=== PATIENT | female | born 1985 | race Caucasian/White ===

== ENCOUNTER 2023-02-17 14:42 | Outpatient (AMB) | payer OTHER, SELFPAY ==
[2023-02-17 15:02] VITALS: BP 130/70; PULSE 70; O2SAT 98; BMI 21.8
--- NOTE | 2023-02-17 15:02 | MHC.PC.OV ---
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 Allergies No Known Allergies Allergy (Verified 02/17/23 15:05) Medication List - Last Reconciled 02/17/23 by Akin Hernandez MD No Known Home Meds Tobacco use date assessed: 02/17/23 Dental Screening Dental Screen Date: 02/17/23 Did you have a dental visit in the last 12 months?: No Did you have a dental problem in the last 6 months where you did not have access to dental care?: No Was dental information given to patient?: Yes HPI Executive Business Coach Request PE HPI Details New?patient Prior?PCP: Edwige BAJWA Last?office?visit/CPE: > 2 yrs Acute?issue(s): Enlarged Thyroid Feels Lump R Shoulder pain Hand Joint Pain. Ibuprofen, Ice/Heat. Concern for suspected Crohn's PMHx: Enlarged Thyroid, Knee Pain and meniscal injuries. Anxiety/Depression. SurgHx: Hysterectomy, MOEs for Moles, Tonsils FHx: Mom: Arthritis, MS, CAD, PA & Stent, HTN, DM Renal disease, Mental health. Dad: EtOH, Lumng [place]. Aunt: RA SocHx: Nonsmoker, EtOH Minimal 1-2 per year. MJ Edibles. No other drugs PFSH Medical History (Updated 02/17/23 @ 16:37 by Akin Hernandez MD) Mohs defect Anxiety Depression Surgical History (Updated 02/17/23 @ 15:15 by Gela Camarena CMA) H/O: hysterectomy S/P tonsillectomy Family History (Updated 02/17/23 @ 15:22 by Gela Camarena CMA) Mother Asthma High blood pressure High cholesterol Diabetes Cardiovascular disease Clotting disorder Thyroid disorder Alcoholism Psychiatric disorder Father Asthma Alcoholism Maternal Grandmother Asthma Breast cancer Paternal Grandmother Asthma Brother Asthma Social History (Updated 02/17/23 @ 15:33 by Gela Camarena CMA) Household Members: Family Housing: House Are you a primary manager medicare marketing to a significant other at home: No Do you presently have visiting nurse or other home services: No Alcohol intake: current Patient Tobacco Use Status: Never used Tobacco e-Cigarette/Vaping Use: Never Used Special abdelrahman needs: No service: No Current occupational status: disabled Vision needs: Yes (wears prescription glasses.) Questionnaire PHQ-9 Over the last 2 weeks, how often have you been bothered by any of the following problems? 1. Little interest or pleasure in doing things: nearly every day 2. Feeling down, depressed, or hopeless: nearly every day 3. Trouble falling or staying asleep, or sleeping too much: nearly every day 4. Feeling tired or having little energy: nearly every day 5. Poor appetite or overeating: several days 6. Feeling bad about yourself - or that you are a failure or have let yourself or your family down: nearly every day 7. Trouble concentrating on things, such as reading the newspaper or watching television: nearly every day 8. Moving or speaking so slowly that other people could have noticed. Or the opposite - being so fidgety or restless that you have been moving around a lot more than usual: nearly every day 9. Thoughts that you would be better off or of hurting yourself in some way: several days Total score: 23 Source: Developed by Drs. Frederick Main, Tatiana Navas, Charan Shanks and colleagues, with an educational hafsa from [employer]. Thrive Questionnaire I am a: Patient What is your living situation today?: I have a steady place to live Within the past 12 months, did the food you bought not last and you didn't have the money to get more?: Sometimes True Within the past 12 months, did you worry whether your food would run out before you got money to buy more?: Sometimes True Do you have trouble paying for medicines?: No Do you have trouble getting transportation to medical appointments?: No Do you have trouble paying your heating and electricity bill?: No Do you have trouble with day-to-day activities such as bathing, preparing meals, shopping, managing finances, etc.?: Yes Are you currently unemployed and looking for a job?: No Are you interested in more education?: No AUDIT C Alcohol Use Questionnaire (AUDIT-C) 1. How often do you have a drink containing alcohol?: Monthly or less 2. How many drinks containing alcohol do you have on a typical day when you are drinking?: 1 or 2 3. How often do you have six or more drinks on one occasion?: Never Total Score: 1 FRED-7 AMB Questionnaire FRED-7 Feeling nervous, anxious, or on edge: 2 = More than half the days Not being able to stop or control worryin = Nearly every day Worrying too much about different things: 3 = Nearly every day Trouble relaxin = Nearly every day Being so restless that it is hard to sit still: 2 = More than half the days Becoming easily annoyed or irritable: 2 = More than half the days Feeling afraid as if something awful might happen: 2 = More than half the days Total FRED-7 score (0-4 normal; 5-9 mild; 10-14 moderate; 15-21 severe): 17 Source: Developed by Drs. Frederick Main, Tatiana Navas, Charan Shanks and colleagues, with an educational hafsa from [employer]. Physical exam (Primary Care) Vital Signs: Last Vital Signs Pulse 70 02/17/23 15:02 BP 130/70 02/17/23 15:02 Pulse Ox 98 02/17/23 15:02 Oxygen Delivery Method Room Air 02/17/23 15:02 BMI result Body Mass Index 21.8 Tobacco/Smoking Status: Tobacco use Status Tobacco use date assessed 02/17/23 02/17/23 15:29 Patient Tobacco Use Status Never used Tobacco 02/17/23 15:33 e-Cigarette/Vaping Use Never Used 02/17/23 15:33 PHQ-9: PHQ-9 Score PHQ-9: Total score 23 02/19/23 14:17 Office Procedures Flu Questionnaire Does the patient have a severe egg allergy?: No Does the patient have severe life threatening allergies?: No Does the patient have a fever or illness today?: No Has the patient ever had Guillain-[place] Syndrome?: No Has the patient ever had any past reaction to a flu shot?: No Immunizations flu vacc [id number] 6mos up(PF) 60 mcg(15 mcgx4)/0.5 mL IM syringe Performing Provider: Akin Hernandez MD Performing Location: [facility] Administered by: Jeanie Rubalcava RN on 02/17/23 14:17 Dose Route Admin Location Dispensed Lot Number Expiration Date NDC E Merchant 0.5 mL IM Left Deltoid 0.5 mL [id number] 11/09/23 78407-018-05 Vidient VIS Given Date VIS Provided VIS Publication Date 02/17/23 Single Vaccine 20 Eligibility Eligibility Date Funding Source Not [facility] Eligible 02/17/23 Private Assessment and Plan Assessment & Plan (1) Neck mass: Code(s): R22.1 - Localized swelling, mass and lump, neck Plan: History?of?anterior?neck?mass. Patient?does?not?think?she?is?ever?been?told?she?had?hyperthyroidism?or?hypothyroidism. Also?checking?thyroid?labs Check?CBC Will?continue?to?follow/evaluate (2) Anxiety and depression: Code(s): F41.9 - Anxiety disorder, unspecified; F32.A - Depression, unspecified Plan: Patient?had?had?a?therapist?and?psychiatrist?in?the?past?and?had?been?on?Lexapro,?Latuda?and?a?2nd?line?medication?as?well. Starting?Lexapro?and?referred?her?to?the?nurse?navigator?to?help?her?get?connected?with?a?therapist?and?psychiatrist (3) Shoulder pain, right: Code(s): M25.511 - Pain in right shoulder Plan: Right?shoulder?pain Normal?range?of?motion?and?no?weakness Neer's?test?negative?for?impingements Checking?lab Can?try?diclofenac May?need?x-rays?and?or?physical?therapy?or?referral?to?Rheumatology. (4) Abdominal pain: Code(s): R10.9 - Unspecified abdominal pain Plan: Patient?says?past?doctors?had?had?clinical?suspicion?of?Crohn's Has?chronic?abdominal?pain Checking?labs?and?referring?her?to?GI (5) Polyarthralgia: Code(s): M25.50 - Pain in unspecified joint Plan: As?above,?checking?labs?including?inflammatory?and?autoimmune?markers Does?not?tolerate?NSAIDs?well?due?to?abdominal?discomfort. Will?give?her?a?script?for?diclofenac?that?she?can?try. Orders: Orders Comprehensive [place]. Panel Fast 02/17/23 Z00.00 - Encounter for general adult medical examination without abnormal findings Lipid Panel 02/17/23 Z00.00 - Encounter for general adult medical examination without abnormal findings UA and rflx microscopic 02/17/23 Z00.00 - Encounter for general adult medical examination without abnormal findings Vitamin B12 and Folate 02/17/23 E53.8 - Deficiency of other specified B group vitamins Free T4 (Free Thyroxine) 02/17/23 E03.9 - Hypothyroidism, unspecified Thyroid Stimulating Hormone 02/17/23 E03.9 - Hypothyroidism, unspecified Triiodothyronine T3 Total 02/17/23 E03.9 - Hypothyroidism, unspecified Erythrocyte Sedimentation Rate 02/17/23 M25.50 - Pain in unspecified joint Rheumatoid Factor 02/17/23 M25.50 - Pain in unspecified joint Microalbumin, Random (w Creat) 02/17/23 I10 - Essential (primary) hypertension Vitamin D 25-OH Total 02/17/23 E55.9 - Vitamin D deficiency, unspecified US soft tiss head and/or neck 02/17/23 R22.1 - Localized swelling, mass and lump, neck CRP High Sensitivity 02/17/23 M25.50 - Pain in unspecified joint Cyclic Citrullinated Peptide 02/17/23 M25.50 - Pain in unspecified joint RANDEE Reflex Titer and Pattern 02/17/23 M25.50 - Pain in unspecified joint Complete Blood Count Auto Diff 02/17/23 R22.1 - Localized swelling, mass and lump, neck, Z00.00 - Encounter for general adult medical examination without abnormal findings Influenza [id number] Immunization 02/17/23 Z23 - Encounter for immunization Referrals Gastroenterology Referral R10.9 - Unspecified abdominal pain Nurse Navigator Referral F32.A - Depression, unspecified, F41.9 - Anxiety disorder, unspecified Medications: New escitalopram oxalate (Lexapro) 5 mg PO DAILY 30 days 30 tabs 3RF diclofenac sodium 1% apply to single knee, ankle, foot; for foot includes sole/toes/top of foot 4 grams topical QID 30 days 200 grams 2RF Coding Level of Care Code Est Pt Level 5 (57599) Diagnoses Neck mass R22.1 Anxiety and depression F41.9; F32.A Shoulder pain, right M25.511 Abdominal pain R10.9 Polyarthralgia M25.50
== END 2023-02-17 17:15 | disposition home or self-care (01) ==
PROVIDERS: PCP Family Medicine; Visit Provider Family Medicine
DX: Z23 Encounter for immunization (principal)
CPT/HCPCS: 90471; 90686; 99214

== ENCOUNTER 2023-03-12 13:26 | Outpatient (REF) | payer OTHER, SELFPAY ==
--- NOTE | ~2023-03-12 | US_ITS ---
EXAMINATION: US THYROID CLINICAL INFORMATION: Localized swelling, mass and lump, neck. COMPARISON: None available. TECHNIQUE: Linear transducer de la trore-scale and color Doppler examination with attention to the region of the thyroid. FINDINGS: SIZE: Measurements of the thyroid lobes and nodules are given in sagittal, anteroposterior and transverse dimensions respectively. Right Thyroid Lobe: 5.8 x 1.6 x 1.8 cm, volume 8.6 mL. Parenchyma: The gland echotexture is heterogeneous. Thyroid vascularity is increased. Left Thyroid Lobe: 5.2 x 1.7 x 1.5 cm, volume 7.2 mL. Parenchyma: The gland echotexture is heterogeneous. Thyroid vascularity is increased. Isthmus: 0.4 cm in maximum AP dimension. No focal thyroid nodule is seen. NODES: No lymphadenopathy is seen in the tissue surrounding the thyroid gland. US/US thyroid IMPRESSION: 1. No discrete thyroid nodules identified. 2. Bilateral thyroid lobes demonstrate heterogeneous echotexture with normal vascularity. 3. No lymphadenopathy noted.
== END 2023-03-12 13:27 | disposition home or self-care (01) ==
LOC: HO.US 13:26
PROVIDERS: PCP Family Medicine; Visit Provider Family Medicine
DX: R22.1 Localized swelling, mass and lump, neck (principal)
CPT/HCPCS: 76536

== ENCOUNTER 2023-04-18 09:33 | Outpatient (REF) | payer OTHER, SELFPAY ==
[2023-04-18 12:15] LABS: Appearance Urine Turbid; Color Urine Yellow; Glucose Urine UA Negative (Negative); Leukocyte Esterase Urine Negative (Negative); Nitrite Urine Negative (Negative); PH 5.5 (5.0-9.0); Specific Gravity - Urine >= 1.030 (1.005-1.025); Urine Blood Negative (Negative); Urine Ketones Negative (Negative); Urine Protein Negative (Neg-Trace)
[2023-04-18 12:16] LABS: MANUAL DIFF FLAG NO
[2023-04-18 12:35] LABS: Basophils Percent Auto 0.6 % (0-2); Eosinophils Absolute Auto 0.3 X10*3/uL (0.0-0.4); Eosinophils Percent Auto 3.7 % (0-4); Hematocrit 42.2 % (37.0-47.0); Hemoglobin 13.9 g/dl (12.0-16.0); Imm Gran Abs Auto 0.02 X10*3/uL (0.00-0.03); Imm Gran Pct Auto 0.3 % (0.0-0.4); Lymphocytes Absolute Auto 1.9 X10*3/uL (1.2-4.9); Lymphocytes Percent Auto 28.9 % (20-40); Mean Corpuscular HGB Conc 32.9 g/dl (31.0-35.0); Mean Corpuscular Hemoglobin 30.1 pg (27.0-33.0); Mean Corpuscular Volume 91.3 fL (80.0-98.0); Mean Platelet Volume 11.4 fL (9.4-12.3); Monocytes Absolute Auto 0.5 X10*3/uL (0.1-1.2); Monocytes Percent Auto 7.9 % (2-11); Neutrophils Absolute Auto 3.9 x10*3/uL (2.0-8.3); Neutrophils Percent Auto 58.6 % (45-73); Platelet Count 215 X10*3/uL (160-400); Red Blood Count 4.62 X10*6/uL (4.20-5.50); Red Cell Distribution Width 11.7 % (11.0-16.0); White Blood Count 6.7 X10*3/uL (4.8-10.8)
[2023-04-18 12:53] LABS: Creatinine Urine 210.73 mg/dL; Microalbum/Creatinine Ratio Ur 4.7 ug/mg cr (<30)
[2023-04-18 13:14] LABS: Rheumatoid Factor < 13.0 IU/mL (<15.0)
[2023-04-18 13:28] LABS: Folate 11.9 ng/mL (> or = 4.0); Vitamin B12 462 pg/mL (200-900)
[2023-04-18 13:35] LABS: Erythrocyte Sedimentation Rate 6 MM/HR (0-20)
[2023-04-18 13:51] LABS: Alanine Aminotransferase 12 U/L (0-31); Albumin Level 4.3 g/dL (3.5-5.0); Alkaline Phosphatase 60 U/L (39-117); Anion Gap 13 (12-20); Aspartate Amino Transferase 16 U/L (5-31); Bilirubin Total 0.4 mg/dL (0.0-1.0); Blood Urea Nitrogen 21 mg/dL (9-16); Carbon Dioxide 25 mmol/L (22-29); Chloride 107 mmol/L (96-108); Cholesterol 229 mg/dL (<200); Estimated Glomerular Filt Rate > 60; Glucose Fasting 79 mg/dL (60-99); HDL Cholesterol 44 mg/dL (>40); LDL Cholesterol Calculated 168 mg/dL (<100); Sodium 141 mmol/L (135-145); Total Protein 7.7 g/dL (6.5-8.0); Triglycerides 85 mg/dL (<150)
[2023-04-18 14:12] LABS: Free T4 (Free Thyroxine) 0.76 ng/dL (0.71-1.85); Thyroid Stimulating Hormone 3.43 uIU/mL (0.32-4.0); Vitamin D 25-OH Total 17.7 ng/mL (>30)
[2023-04-19 04:59] LABS: Triiodothyronine T3 Total 145 ng/dL (76-181)
[2023-04-21 13:08] LABS: Cyclic Citrullinated Peptide <16 UNITS
[2023-04-22 08:04] LABS: Anti Nuclear Antibody Screen NEGATIVE (NEGATIVE)
== END 2023-04-18 09:34 | disposition home or self-care (01) ==
LOC: HO.WFDLDS 09:33
PROVIDERS: Visit Provider Family Medicine
DX: Z00.00 Encounter for general adult medical examination without abnormal findings (principal); E55.9 Vitamin D deficiency, unspecified; E03.9 Hypothyroidism, unspecified; M25.50 Pain in unspecified joint; E53.8 Deficiency of other specified B group vitamins; R22.1 Localized swelling, mass and lump, neck; I10 Essential (primary) hypertension
CPT/HCPCS: 36415; 80053; 80061; 81003; 82043; 82306; 82570; 82607; 82746; 84439; 84443; 84480; 85025; 85652; 86038; 86141; 86200; 86431

== ENCOUNTER 2023-04-30 11:53 | Outpatient (AMB) | payer OTHER, SELFPAY ==
[2023-04-30 12:36] VITALS: BP 120/72; PULSE 62; O2SAT 100; BMI 21.8
--- NOTE | 2023-04-30 12:36 | MHC.PC.OV ---
Vital Signs 04/30/23 12:36 Height 5 ft 5 in Weight 131 lb BMI 21.8 BP 120/72 Blood Pressure Location Lt brachial Position Sitting Pulse 62 Pulse Source Pulse Oximeter Pulse Oximetry (%) 100 Oxygen Delivery Method Room Air Intake Visit Reasons: CPE with f/u labs and health maint. Intake Note: Patient is here for her physical today with follow up on labs, ultrasound. Allergies No Known Allergies Allergy (Verified 02/17/23 15:05) Tobacco use date assessed: 02/17/23 HPI CPE with f/u labs and health maint. HPI Details 37 y/o female presents for an extended exam with f/u labs and health maintenance. Labs were drawn 04/18/23. Reviewed labs with pt. Triglycerides 85. TC 229. LDL 168. HDL 44. Vitamin D low at 17.7 ng/mL. Thyroid ultrasound 03/12/23 and was fine. Pt reports hx of asthma and is on an albuterol inhaler. She reports symptoms all the time. She reports she is scheduled for a pap smear in August. She is on Lexapro for anxiety/depression. HPI Comments History of Present Illness Details Documentation assistance for Akin Hernandez MD, was provided by Thierno Mitchell,? Lead Web Developer on 04/30/2023 1:07 PM EST. I, Dr. Hernandez, have read, observed, and verified documentation. [facility] Medical History (Updated 04/30/23 @ 13:07 by Thierno Mitchell) Mohs defect Anxiety Depression Surgical History (Updated 02/17/23 @ 15:15 by Gela Camarena CMA) H/O: hysterectomy S/P tonsillectomy Family History (Updated 02/17/23 @ 15:22 by Gela Camarena CMA) Mother Asthma High blood pressure High cholesterol Diabetes Cardiovascular disease Clotting disorder Thyroid disorder Alcoholism Psychiatric disorder Father Asthma Alcoholism Maternal Grandmother Asthma Breast cancer Paternal Grandmother Asthma Brother Asthma Social History (Updated 02/17/23 @ 15:33 by Gela Camarena CMA) Household Members: Family Housing: House Are you a primary care companion to a significant other at home: No Do you presently have visiting nurse or other home services: No 75 years or older and lives alone: No Alcohol intake: current Patient Tobacco Use Status: Never used Tobacco e-Cigarette/Vaping Use: Never Used Special abdelrahman needs: No service: No Current occupational status: disabled Vision needs: Yes (wears prescription glasses.) Questionnaire PHQ-9 Over the last 2 weeks, how often have you been bothered by any of the following problems? 1. Little interest or pleasure in doing things: several days 2. Feeling down, depressed, or hopeless: nearly every day 3. Trouble falling or staying asleep, or sleeping too much: nearly every day 4. Feeling tired or having little energy: more than half the days 5. Poor appetite or overeating: more than half the days 6. Feeling bad about yourself - or that you are a failure or have let yourself or your family down: nearly every day 7. Trouble concentrating on things, such as reading the newspaper or watching television: nearly every day 8. Moving or speaking so slowly that other people could have noticed. Or the opposite - being so fidgety or restless that you have been moving around a lot more than usual: nearly every day 9. Thoughts that you would be better off or of hurting yourself in some way: several days Total score: 21 Depression Screening Interpretation: Positive Depression Screening Done: Yes Source: Developed by Drs. Frederick Main, Tatiana Navas, Charan Shanks and colleagues, with an educational hafsa from [employer]. FRED-7 AMB Questionnaire FRED-7 Date FRED - 7 assessed: 04/30/23 Feeling nervous, anxious, or on edge: 3 = Nearly every day Not being able to stop or control worryin = Nearly every day Worrying too much about different things: 3 = Nearly every day Trouble relaxin = Nearly every day Being so restless that it is hard to sit still: 3 = Nearly every day Becoming easily annoyed or irritable: 1 = Several days Feeling afraid as if something awful might happen: 1 = Several days Total FRED-7 score (0-4 normal; 5-9 mild; 10-14 moderate; 15-21 severe): 17 Source: Developed by Drs. Frederick Main, Tatiana Navas, Charan Shanks and colleagues, with an educational hafsa from [employer]. Review of Systems Const Denies chills, Denies fatigue, Denies fever(s), Denies headache(s) and Denies weakness Eyes Denies change in vision ENT Denies dizziness and Denies headache(s) Card Denies chest pain, Denies lightheadedness, Denies dyspnea and Denies other (Palpitations) Resp Denies cough, Denies dyspnea, Denies wheezing and Denies other ( shortness of breath) GI Denies abdominal pain, Denies melena, Denies hematochezia, Denies change in bowel habits, Denies dyspepsia and Denies nausea Denies hematuria and Denies dysuria Musc Denies numbness and Denies tingling Skin/Breast Denies rash, Denies unusual bruising and Denies wounds Neuro Denies dizziness, Denies headache(s), Denies numbness, Denies Sensory deficit (Neuro), Denies tingling, Denies paresthesias and Denies weakness Psych Reports anxiety and Reports depression Endo Denies fatigue Shan/Lymph Denies easy bleeding and Denies easy bruising Aller/Immun Denies wheezing Physical exam (Primary Care) Vital Signs: Last Vital Signs Pulse 62 04/30/23 12:36 BP 120/72 04/30/23 12:36 Pulse Ox 100 04/30/23 12:36 Oxygen Delivery Method Room Air 04/30/23 12:36 BMI result Body Mass Index 21.8 Tobacco/Smoking Status: Tobacco use Status Tobacco use date assessed 02/17/23 04/30/23 12:37 Patient Tobacco Use Status Never used Tobacco 04/30/23 12:37 e-Cigarette/Vaping Use Never Used 04/30/23 12:37 PHQ-9: PHQ-9 Score PHQ-9: Total score 21 04/30/23 12:59 Depression Screening Interpretation: Positive Const General: no acute distress and well developed Nutritional Appearance: well nourished Orientation/consciousness: patient oriented x3 HENMT Head: Yes normocephalic and Yes atraumatic Ears: hearing grossly normal bilaterally and TM's normal bilaterally General nose exam: Normal external nose present and Normal nares present Mouth: Normal oral and palatal mucosa present and moist mucous membranes Teeth and gingiva: dentition normal Throat: Yes posterior oropharynx normal Eyes General: appearance normal, both eyes and all related structures Pupils: Equal, round and reactive pupils present EOM: EOMs intact bilaterally Neck Neck: Yes normal visual inspection, Yes no lymphadenopathy and Yes trachea midline Thyroid: Thyroid normal Carotids: no bruits Lymphatic: no lymphadenopathy noted Chest Chest palpation & inspection: normal inspection of the chest Resp Effort & Inspection: normal respiratory effort Auscultation: clear to auscultation bilaterally Cardio Rate: regular rate Rhythm: regular rhythm Heart sounds: S1 normal heart sound present, S2 normal heart sound present, no gallops, no murmurs and no rubs Bruits: no abdominal aortic bruits and no carotid bruits GI Palpation (GI): No Abdominal aortic bruit present, Soft to palpation, nontender, No hepatosplenomegaly present and No Rebound tenderness present Auscultation: normal bowel sounds General: Yes no CVA tenderness Back/Spine/Pelvis Back: no CVA tenderness Cervical Spine: cervical ROM normal and No Cervical spine tenderness Thoracic/Lumbar Spine: thoraco-lumbar ROM normal, No pain with thoraco-lumbar ROM, No thoracic spinal tenderness and No lumbar spinal tenderness Skin Lesions: no lesions Rashes: no rashes Trauma: no lacerations or abrasions Wounds: no wounds Nails: normal Neuro General: patient oriented x3 and gait normal Cranial nerves: Yes Equal, round and reactive pupils present Cognition (Neuro): normal cognition Gait exam (Neuro): Normal gait present Motor exam (neuro): 5/5 motor strength present throughout Sensory Exam: No Sensory deficit (Neuro) Deep tendon reflexes (DTR's): Right patellar reflex intensity grade: 2+ and Left patellar reflex intensity grade: 2+ Extrem General: Yes normal to inspection and No edema Psych Appearance: grossly normal Affect: normal affect Attitude: cooperative Thought process: Normal thought process present Assessment and Plan Assessment & Plan (1) Hypercholesterolemia: Code(s): E78.00 - Pure hypercholesterolemia, unspecified Plan: Lipids?are?elevated.??Encouraged?a?diet?lower?in?saturated?fats?and?cholesterol We?can?follow-up?at?a?subsequent?visit?to?recheck?lipid (2) Neck mass: Code(s): R22.1 - Localized swelling, mass and lump, neck Plan: Prominent?thyroid?on?palpation?but?thyroid?scan?shows?normal?gland?without?enlargement?or?nodularity (3) Low vitamin D level: Code(s): R79.89 - Other specified abnormal findings of blood chemistry Plan: Had?sent?a?script?for?vitamin?D?and?she?is?taking?this We?can?follow-up?on?vitamin-D?level?at?a?subsequent?lab?draw (4) Asthma: Code(s): J45.909 - Unspecified asthma, uncomplicated Plan: Patient?notes?symptoms?most?days Continue?albuterol?and?will?add?Flovent (5) Polyarthralgia: Code(s): M25.50 - Pain in unspecified joint Plan: Significant?joint?pain?in?multiple?joints Inflammatory?markers?are?negative?today.??She?says?that?they?have?been?elevated?in?the?past She?would?like?referral?to?Rheumatology?which?I?have?made We?did?discuss?that?other?possibilities?such?as?fibromyalgia?and?anxiety?may?be?the?primary?underlying?cause?or?a?contributing?factor.??Will?continue?to?follow (6) Anxiety and depression: Code(s): F41.9 - Anxiety disorder, unspecified; F32.A - Depression, unspecified Plan: Started?a?low?dose?of?Lexapro?at?her?last?visit She?is?tolerating?this?but?she?does?not?notice?much?improvement. Also?notices?some?frontal?headaches?which?seem?to??baez?up ?from?her?chest. Likely?related?to?anxiety Increasing?her?Lexapro?today. 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 (8) Adult general medical exam: Code(s): Z00.00 - Encounter for general adult medical examination without abnormal findings Plan: 37-year-old?female?presents?for?an?extended?exam Orders: Referrals Rheumatology Referral M25.50 - Pain in unspecified joint Medications: New fluticasone propionate 110 mcg/actuation (Flovent HFA) 1 puff inhalation Q12H 12 grams 2RF 30 days albuterol sulfate 90 mcg/actuation (ProAir HFA) 2 puffs inhalation Q4-6H PRN 8.5 grams 0RF shortness of breath or wheezing 30 days M25.50 - Pain in unspecified joint Changed From escitalopram oxalate (Lexapro) 5 mg PO DAILY 30 days 30 tabs 3RF To escitalopram oxalate 10 mg PO DAILY 30 days 30 tabs 3RF Refilled cholecalciferol (vitamin D3) 125 mcg PO DAILY 30 days 30 caps 2RF M25.50 - Pain in unspecified joint Coding Level of Care Code Est Pt Level 4 (51994) Diagnoses Hypercholesterolemia E78.00 Neck mass R22.1 Low vitamin D level R79.89 Asthma J45.909 Polyarthralgia M25.50 Anxiety and depression F41.9; F32.A Screening for cervical cancer Z12.4 Adult general medical exam Z00.00
== END 2023-04-30 13:20 | disposition home or self-care (01) ==
PROVIDERS: PCP Family Medicine; Visit Provider Family Medicine
DX: E78.00 Pure hypercholesterolemia, unspecified (principal); R22.1 Localized swelling, mass and lump, neck; R79.89 Other specified abnormal findings of blood chemistry; J45.909 Unspecified asthma, uncomplicated; M25.50 Pain in unspecified joint; F41.9 Anxiety disorder, unspecified; F32.A Depression, unspecified; Z12.4 Encounter for screening for malignant neoplasm of cervix; Z00.00 Encounter for general adult medical examination without abnormal findings
CPT/HCPCS: 99214

== ENCOUNTER 2023-05-07 11:50 | Outpatient (AMB) | payer OTHER, SELFPAY ==
--- NOTE | 2023-05-07 12:02 | A.OFFVIS_ITS ---
Intake Vital Signs 05/07/23 12:03 Height 5 ft 5 in Weight 130 lb BMI 21.6 BP 126/68 Blood Pressure Location Lt brachial Position Sitting Pulse 60 Intake Visit Reasons: Abdominal pain Intake Note: New consult for abdominal pain. Patient cc: abdominal pain with bloating and vomit on and off, between diarrhea and constipation, and also the patient said she is been feeling a lump on her left side of neck/throat. [place] Slabs Sawyer Required: No Accompanied by: Self / Same As Patient Allergies No Known Allergies Allergy (Verified 05/07/23 12:02) Medication List - Last Reconciled 05/07/23 by Cheryl Riley PA-C albuterol sulfate 90 mcg/actuation (ProAir HFA) 2 puffs inhalation Q4-6H PRN 30 days cholecalciferol (vitamin D3) 125 mcg PO DAILY 30 days escitalopram oxalate 10 mg PO DAILY 30 days fluticasone propionate 110 mcg/actuation (Flovent HFA) 1 puff inhalation Q12H 30 days HPI HPI Comments History of Present Illness Details 37 y/o F- relocated from [place]- she had an issue back a couple years ago- she was to see GI- she never followed through due to relocation She says she is discontinue all of her medications and due to relocating and finding a PCP and insurance issues C/o - early satiety, stools loose- N/V sometimes nothing specific brings it on or makes it better- no weight loss-no f/chills- has fatigue-she is depressed - see therapist-she has anxiety and depression. She does get her chest pain from time to time however this has been chronic -per her report no cardiac findings In she says that she has a ?myraid of psychologic problems she has an episode of abdominal pain - 2-3 x month-she does not get heartburn she- gets constipated if not drinking water- Typically 1 BM daily- No known-family hx IBD/ crohn's [facility] Medical History (Updated 05/07/23 @ 14:37 by Cheryl Riley PA-C) Mohs defect Anxiety Depression Surgical History H/O: hysterectomy S/P tonsillectomy Family History Mother Asthma High blood pressure High cholesterol Diabetes Cardiovascular disease Clotting disorder Thyroid disorder Alcoholism Psychiatric disorder Father Asthma Alcoholism Maternal Grandmother Asthma Breast cancer Paternal Grandmother Asthma Brother Asthma Social History (Updated 05/07/23 @ 12:30 by Cheryl Riley PA-C) Household Members: Family Household Members Other:: , - 2 older kids Housing: House Are you a primary family day care worker to a significant other at home: No Do you presently have visiting nurse or other home services: No 75 years or older and lives alone: No Alcohol intake: current Patient Tobacco Use Status: Never used Tobacco e-Cigarette/Vaping Use: Never Used Special abdelrahman needs: No service: No Current occupational status: disabled Vision needs: Yes (wears prescription glasses.) Review of Systems Const All systems reviewed & are unremarkable except as noted in HPI and below Denies chills, Reports fatigue, Denies fever(s), Denies weight gain and Denies weight loss ENT Denies dysphagia Card Reports chest pain ( chronic due to stress ), Denies syncope, Denies irregular heart rhythm, Denies lightheadedness and Denies dyspnea Resp Denies dyspnea GI Denies abdominal pain, Denies bloating, Denies constipation, Denies dysphagia, Denies heartburn, Denies fecal incontinence, Reports loose stools, Reports nausea and Reports vomiting Neuro Denies syncope Psych Reports anxiety, Reports depression, Denies homicidal ideation and Denies suicidal ideation Endo Reports fatigue Physical Exam Vital Signs: Last Vital Signs Pulse 60 05/07/23 12:03 BP 126/68 05/07/23 12:03 BMI result Body Mass Index 21.6 Const General: cooperative, healthy appearing and comfortable Orientation/consciousness: patient oriented x3 Limitations: no limitations Eyes Sclerae: sclerae normal Resp Effort & Inspection: normal respiratory effort and able to speak in complete sentences Auscultation: no rales, no rhonchi and no wheezes Cardio Rate: regular rate Rhythm: regular rhythm Heart sounds: S1 normal heart sound present and S2 normal heart sound present GI Palpation (GI): Soft to palpation, Tenderness to palpation present (GI) (Diffuse) and no guarding Percussion: Yes normal to percussion Auscultation: normal bowel sounds Skin General skin exam: no rashes or lesions noted Neuro General: patient oriented x3 Extrem General: Yes full ROM Psych Speech and movement: Normal speech and movement present and Clear speech present Affect: Labile affect present Attitude: cooperative and Avoids eye contact (attititude/behavior) Thought process: Normal thought process present Thought content: Normal thought content present Assessment & Plan Assessment & Plan (1) Von Willebrand disease type IA: Code(s): D68.01 - Von Willebrand disease, type 1 Plan: Follows with PCP (2) Abdominal pain: Comment: Diffuse mild tenderness throughout no rebound or guarding no palpable mass Discuss dyspepsia/acid reflux, denies Code(s): R10.9 - Unspecified abdominal pain Plan: Upper GI series small-bowel follow Monitor sent some try to avoid culprits Plan Upper GI series small-bowel follow Monitor sent some try to avoid culprits Orders: Orders FL upper GI small bowel Today D68.01 - Von Willebrand disease, type 1, R10.9 - Unspecified abdominal pain Patient Instructions: Pleasant somewhat difficult to assess 37-year-old female, seemingly depressed-no suicidal homicidal ideation Upper GI series small-bowel follow through Monitor sent some try to avoid culprits Reinforced importance follow-up with PCP and as well as psychotherapy Follow instructions for prescribed medications Questions ask answered to her satisfaction Encouraged to call questions or concerns Coding Level of Care Code New Pt Level 4 (53972) Diagnoses Von Willebrand disease type IA D68.01 Abdominal pain R10.9 Time Spent (min) 30
[2023-05-07 12:03] VITALS: BP 126/68; PULSE 60; BMI 21.6
== END 2023-05-07 14:42 | disposition home or self-care (01) ==
PROVIDERS: PCP Family Medicine; Visit Provider Physician Assistant
DX: D68.01 Von Willebrand disease, type 1 (principal); R10.9 Unspecified abdominal pain
CPT/HCPCS: 99204

== ENCOUNTER → 2023-05-07 11:50 | Outpatient (BNVA) | payer OTHER, SELFPAY | PROVIDERS: PCP Family Medicine; Visit Provider Physician Assistant | DX: D68.01 Von Willebrand disease, type 1 (principal); R10.9 Unspecified abdominal pain | CPT/HCPCS: 99202 ==

== ENCOUNTER 2023-07-04 09:43 | Outpatient (REF) | payer OTHER, SELFPAY | END 2023-07-04 09:44 | disposition home or self-care (01) | LOC: HO.XRAY 09:43 | PROVIDERS: PCP Family Medicine; Visit Provider Physician Assistant | DX: Z13.89 Encounter for screening for other disorder (principal) ==

== ENCOUNTER 2023-07-16 09:41 | Outpatient (AMB) | payer OTHER, SELFPAY ==
[2023-07-16 09:56] VITALS: BP 120/68; PULSE 64; O2SAT 97; BMI 22.0
--- NOTE | 2023-07-16 09:56 | A.OFFPC_ITS ---
Vital Signs 07/16/23 09:56 Height 5 ft 5 in Weight 132 lb BMI 22.0 BP 120/68 Blood Pressure Location Lt brachial Position Sitting Pulse 64 Pulse Source Pulse Oximeter Pulse Oximetry (%) 97 Oxygen Delivery Method Room Air Intake Visit Reasons: f/u polyarthralgia, anxiety/depression Intake Note: Patient is here to follow up on polyarthralgia and anxiety and depression. Allergies No Known Allergies Allergy (Verified 07/16/23 09:59) Tobacco use date assessed: 02/17/23 Dental Screening Dental Screen Date: 07/16/23 Did you have a dental visit in the last 12 months?: Yes Did you have a dental problem in the last 6 months where you did not have access to dental care?: No Was dental information given to patient?: Patient has dentist HPI f/u polyarthralgia, anxiety/depression HPI Details 37 y/o female presents to f/u polyarthal arnold and anxiety/depression. Had increased her lexapro for her anxiety. Had referred her to rheumatology for polyarthralgia. FRED-7 12, PHQ-9 22 today - significant depression/anxiety. [facility] Medical History Mohs defect Anxiety Depression Surgical History H/O: hysterectomy S/P tonsillectomy Family History Mother Asthma High blood pressure High cholesterol Diabetes Cardiovascular disease Clotting disorder Thyroid disorder Alcoholism Psychiatric disorder Father Asthma Alcoholism Maternal Grandmother Asthma Breast cancer Paternal Grandmother Asthma Brother Asthma Social History Household Members: Family Household Members Other:: , - 2 older kids Housing: House Are you a primary care support representative to a significant other at home: No Do you presently have visiting nurse or other home services: No 75 years or older and lives alone: No Alcohol intake: current Patient Tobacco Use Status: Never used Tobacco e-Cigarette/Vaping Use: Never Used Special abdelrahman needs: No service: No Current occupational status: disabled Vision needs: Yes (wears prescription glasses.) Questionnaire PHQ-9 Over the last 2 weeks, how often have you been bothered by any of the following problems? 1. Little interest or pleasure in doing things: more than half the days 2. Feeling down, depressed, or hopeless: more than half the days 3. Trouble falling or staying asleep, or sleeping too much: nearly every day 4. Feeling tired or having little energy: nearly every day 5. Poor appetite or overeating: nearly every day 6. Feeling bad about yourself - or that you are a failure or have let yourself or your family down: more than half the days 7. Trouble concentrating on things, such as reading the newspaper or watching television: nearly every day 8. Moving or speaking so slowly that other people could have noticed. Or the opposite - being so fidgety or restless that you have been moving around a lot more than usual: nearly every day 9. Thoughts that you would be better off or of hurting yourself in some way: several days Total score: 22 Depression Screening Interpretation: Positive Depression Screening Done: Yes 31513 - PHQ-9 Billing: Yes Source: Developed by Drs. Frederick Main, Tatiana Navas, Charan Shanks and colleagues, with an educational hafsa from [employer]. Thrive Questionnaire Date Thrive assessed: 07/16/23 I am a: Patient What is your living situation today?: I have a steady place to live Within the past 12 months, did the food you bought not last and you didn't have the money to get more?: Never true Within the past 12 months, did you worry whether your food would run out before you got money to buy more?: Sometimes True Do you have trouble paying for medicines?: No Do you have trouble getting transportation to medical appointments?: No Do you have trouble paying your heating and electricity bill?: No Do you have trouble taking care of your child, family member or friend?: No Do you have trouble with day-to-day activities such as bathing, preparing meals, shopping, managing finances, etc.?: Yes Are you currently unemployed and looking for a job?: No Are you interested in more education?: No THRIVE Score: 1 AUDIT C Alcohol Use Questionnaire (AUDIT-C) 1. How often do you have a drink containing alcohol?: Never 3. How often do you have six or more drinks on one occasion?: Never Total Score: 0 FRED-7 AMB Questionnaire FRED-7 Date FRED - 7 assessed: 07/16/23 Feeling nervous, anxious, or on edge: 2 = More than half the days Not being able to stop or control worryin = Several days Worrying too much about different things: 1 = Several days Trouble relaxin = Nearly every day Being so restless that it is hard to sit still: 3 = Nearly every day Becoming easily annoyed or irritable: 1 = Several days Feeling afraid as if something awful might happen: 1 = Several days Total FRED-7 score (0-4 normal; 5-9 mild; 10-14 moderate; 15-21 severe): 12 Source: Developed by Drs. Frederick Main, Tatiana Navas, Charan Shanks and colleagues, with an educational hafsa from [employer]. FRED-7 Assessment Billing FRED-7 Assessment Tool: FRED-7 Assessment 57699 Review of Systems Const Denies chills, Denies fatigue, Denies fever(s), Denies headache(s) and Denies weakness ENT Denies dizziness and Denies headache(s) Card Denies dyspnea Resp Denies cough, Denies dyspnea, Denies wheezing and Denies other (shortness of breath) Musc Denies numbness and Denies tingling Neuro Denies dizziness, Denies headache(s), Denies numbness, Denies tingling and Denies weakness Psych Reports anxiety and Reports depression Endo Denies fatigue Aller/Immun Denies wheezing Physical exam (Primary Care) Vital Signs: Last Vital Signs Pulse 64 07/16/23 09:56 BP 120/68 07/16/23 09:56 Pulse Ox 97 07/16/23 09:56 Oxygen Delivery Method Room Air 07/16/23 09:56 BMI result Body Mass Index 22.0 Tobacco/Smoking Status: Tobacco use Status Tobacco use date assessed 02/17/23 07/16/23 10:08 Patient Tobacco Use Status Never used Tobacco 07/16/23 10:08 e-Cigarette/Vaping Use Never Used 07/16/23 10:08 PHQ-9: PHQ-9 Score PHQ-9: Total score 22 07/16/23 10:44 Depression Screening Interpretation: Positive Thrive Assessment: Date of Thrive Assessment Date Thrive assessed 07/16/23 07/16/23 10:08 Const General: well developed; No acute distress Nutritional Appearance: well nourished Orientation/consciousness: patient oriented x3 HENMT Head: Yes normocephalic and Yes atraumatic Eyes General: appearance normal, both eyes and all related structures Pupils: Equal, round and reactive pupils present EOM: EOMs intact bilaterally Resp Effort & Inspection: normal respiratory effort Neuro General: patient oriented x3 and gait normal Cranial nerves: Yes Equal, round and reactive pupils present Psych Affect: normal affect Assessment and Plan Assessment & Plan (1) Anxiety and depression: Code(s): F41.9 - Anxiety disorder, unspecified; F32.A - Depression, unspecified Plan: Had?increased?escitalopram. Still?has?ongoing?anxiety?and?depression Will?trial?Abilify?and?continue?escitalopram Follow-up?in?1?month (2) Polyarthralgia: Code(s): M25.50 - Pain in unspecified joint Plan: She?has?an?upcoming?appointment?with?rheumatology (3) Family history of MS (multiple sclerosis): Code(s): Z82.0 - Family history of epilepsy and other diseases of the nervous system Plan: Family?history?of?MS?(mother)?and?patient?has?concerns?regarding?tingling?and?nu mbness?in?extremities. As?these?symptoms?can?be?caused?by?her?anxiety?and?depression?whi ch?are?rather?severe,?we?will?try?to?work?on?that?as?the?underlying?cause. However,?will?perform?a?more?thorough?neuro?exam?at?her?next?visit?and?consider? further?workup?if?indicated. Medications: New aripiprazole (Abilify) 2 mg PO BEDTIME 30 tabs 1RF 30 days Coding Level of Care Code Est Pt Level 3 (76472) Diagnoses Anxiety and depression F41.9; F32.A Polyarthralgia M25.50 Family history of MS (multiple sclerosis) Z82.0 Additional Codes FRED-7 Assessment Billing - FRED-7 Assessment Tool: FRED-7 Assessment [id number] ([id number])
== END 2023-07-16 10:57 | disposition home or self-care (01) ==
PROVIDERS: PCP Family Medicine; Visit Provider Family Medicine
DX: F41.9 Anxiety disorder, unspecified (principal); F32.A Depression, unspecified; M25.50 Pain in unspecified joint; Z82.0 Family history of epilepsy and other diseases of the nervous system
CPT/HCPCS: 96127; 99213

== ENCOUNTER 2023-07-23 09:46 | Outpatient (REF) | payer OTHER, SELFPAY ==
--- NOTE | ~2023-07-23 | XR_ITS ---
Examination: X-RAYS BILATERAL KNEES INDICATION: Pain in unspecified joint. COMPARISON: None. TECHNIQUE: AP, lateral, and sunrise views of each knee. FINDINGS: RIGHT KNEE: Trace joint effusion. Mild narrowing of the medial compartment. Alignment preserved. LEFT KNEE: Trace joint effusion. Mild narrowing of the medial compartment. Alignment preserved. XR/XR knee RT 3V IMPRESSION: Mild narrowing of the medial compartments bilaterally.
--- NOTE | ~2023-07-23 | XR_ITS ---
EXAMINATION: XR HAND, LEFT XR HAND, RIGHT XR FOOT, LEFT XR FOOT, RIGHT CLINICAL INFORMATION: Pain in unspecified joint. COMPARISON: None available. TECHNIQUE: 3 views of each foot. 3 views of each hand. FINDINGS: Left hand: Moderate degenerative changes in the 1st carpometacarpal joint with joint space narrowing and hypertrophic change. The bone mineralization is normal. Alignment is preserved. Right hand: Bone mineralization is normal. Moderate degenerative changes in the 1st carpometacarpal joint with joint space narrowing and hypertrophic change. Alignment is preserved. Left foot: Bone mineralization is normal. Tiny faint calcifications in the soft tissues between the 2nd and 3rd metatarsophalangeal joints of the left foot of indeterminate age and etiology, possibly avulsion fracture fragment versus chronic/degenerative calcifications. Correlation with clinical exam and history recommended to determine further management. Right foot: Bone mineralization is normal. Alignment maintained. No displaced fracture. XR/XR hand RT min 3V IMPRESSION: 1. Moderate degenerative changes in the 1st carpometacarpal joints bilaterally. 2. Tiny faint calcifications in the soft tissues between the 2nd and 3rd metatarsophalangeal joints of the left foot of indeterminate age and etiology, possibly avulsion fracture fragment versus chronic/degenerative calcifications. Correlation with clinical exam and history recommended to determine further management.
--- NOTE | ~2023-07-23 | XR_ITS ---
EXAMINATION: XR HAND, LEFT XR HAND, RIGHT XR FOOT, LEFT XR FOOT, RIGHT CLINICAL INFORMATION: Pain in unspecified joint. COMPARISON: None available. TECHNIQUE: 3 views of each foot. 3 views of each hand. FINDINGS: Left hand: Moderate degenerative changes in the 1st carpometacarpal joint with joint space narrowing and hypertrophic change. The bone mineralization is normal. Alignment is preserved. Right hand: Bone mineralization is normal. Moderate degenerative changes in the 1st carpometacarpal joint with joint space narrowing and hypertrophic change. Alignment is preserved. Left foot: Bone mineralization is normal. Tiny faint calcifications in the soft tissues between the 2nd and 3rd metatarsophalangeal joints of the left foot of indeterminate age and etiology, possibly avulsion fracture fragment versus chronic/degenerative calcifications. Correlation with clinical exam and history recommended to determine further management. Right foot: Bone mineralization is normal. Alignment maintained. No displaced fracture. XR/XR foot RT min 3V IMPRESSION: 1. Moderate degenerative changes in the 1st carpometacarpal joints bilaterally. 2. Tiny faint calcifications in the soft tissues between the 2nd and 3rd metatarsophalangeal joints of the left foot of indeterminate age and etiology, possibly avulsion fracture fragment versus chronic/degenerative calcifications. Correlation with clinical exam and history recommended to determine further management.
--- NOTE | ~2023-07-23 | XR_ITS ---
Examination: X-RAYS BILATERAL KNEES INDICATION: Pain in unspecified joint. COMPARISON: None. TECHNIQUE: AP, lateral, and sunrise views of each knee. FINDINGS: RIGHT KNEE: Trace joint effusion. Mild narrowing of the medial compartment. Alignment preserved. LEFT KNEE: Trace joint effusion. Mild narrowing of the medial compartment. Alignment preserved. XR/XR knee LT 3V IMPRESSION: Mild narrowing of the medial compartments bilaterally.
--- NOTE | ~2023-07-23 | XR_ITS ---
EXAMINATION: XR HAND, LEFT XR HAND, RIGHT XR FOOT, LEFT XR FOOT, RIGHT CLINICAL INFORMATION: Pain in unspecified joint. COMPARISON: None available. TECHNIQUE: 3 views of each foot. 3 views of each hand. FINDINGS: Left hand: Moderate degenerative changes in the 1st carpometacarpal joint with joint space narrowing and hypertrophic change. The bone mineralization is normal. Alignment is preserved. Right hand: Bone mineralization is normal. Moderate degenerative changes in the 1st carpometacarpal joint with joint space narrowing and hypertrophic change. Alignment is preserved. Left foot: Bone mineralization is normal. Tiny faint calcifications in the soft tissues between the 2nd and 3rd metatarsophalangeal joints of the left foot of indeterminate age and etiology, possibly avulsion fracture fragment versus chronic/degenerative calcifications. Correlation with clinical exam and history recommended to determine further management. Right foot: Bone mineralization is normal. Alignment maintained. No displaced fracture. XR/XR hand LT min 3V IMPRESSION: 1. Moderate degenerative changes in the 1st carpometacarpal joints bilaterally. 2. Tiny faint calcifications in the soft tissues between the 2nd and 3rd metatarsophalangeal joints of the left foot of indeterminate age and etiology, possibly avulsion fracture fragment versus chronic/degenerative calcifications. Correlation with clinical exam and history recommended to determine further management.
--- NOTE | ~2023-07-23 | XR_ITS ---
EXAMINATION: XR HAND, LEFT XR HAND, RIGHT XR FOOT, LEFT XR FOOT, RIGHT CLINICAL INFORMATION: Pain in unspecified joint. COMPARISON: None available. TECHNIQUE: 3 views of each foot. 3 views of each hand. FINDINGS: Left hand: Moderate degenerative changes in the 1st carpometacarpal joint with joint space narrowing and hypertrophic change. The bone mineralization is normal. Alignment is preserved. Right hand: Bone mineralization is normal. Moderate degenerative changes in the 1st carpometacarpal joint with joint space narrowing and hypertrophic change. Alignment is preserved. Left foot: Bone mineralization is normal. Tiny faint calcifications in the soft tissues between the 2nd and 3rd metatarsophalangeal joints of the left foot of indeterminate age and etiology, possibly avulsion fracture fragment versus chronic/degenerative calcifications. Correlation with clinical exam and history recommended to determine further management. Right foot: Bone mineralization is normal. Alignment maintained. No displaced fracture. XR/XR foot LT min 3V IMPRESSION: 1. Moderate degenerative changes in the 1st carpometacarpal joints bilaterally. 2. Tiny faint calcifications in the soft tissues between the 2nd and 3rd metatarsophalangeal joints of the left foot of indeterminate age and etiology, possibly avulsion fracture fragment versus chronic/degenerative calcifications. Correlation with clinical exam and history recommended to determine further management.
[2023-07-23 11:07] LABS: MANUAL DIFF FLAG NO
[2023-07-23 11:50] LABS: Basophils Percent Auto 0.5 % (0-2); Eosinophils Absolute Auto 0.1 X10*3/uL (0.0-0.4); Eosinophils Percent Auto 1.7 % (0-4); Hematocrit 43.1 % (37.0-47.0); Hemoglobin 14.8 g/dl (12.0-16.0); Imm Gran Abs Auto 0.02 X10*3/uL (0.00-0.03); Imm Gran Pct Auto 0.3 % (0.0-0.4); Lymphocytes Percent Auto 31.5 % (20-40); Mean Corpuscular HGB Conc 34.3 g/dl (31.0-35.0); Mean Corpuscular Hemoglobin 30.5 pg (27.0-33.0); Mean Corpuscular Volume 88.7 fL (80.0-98.0); Mean Platelet Volume 10.9 fL (9.4-12.3); Monocytes Absolute Auto 0.5 X10*3/uL (0.1-1.2); Monocytes Percent Auto 8.2 % (2-11); Neutrophils Absolute Auto 3.7 x10*3/uL (2.0-8.3); Neutrophils Percent Auto 57.8 % (45-73); Platelet Count 236 X10*3/uL (160-400); Red Blood Count 4.86 X10*6/uL (4.20-5.50); Red Cell Distribution Width 11.8 % (11.0-16.0); White Blood Count 6.4 X10*3/uL (4.8-10.8)
[2023-07-23 12:29] LABS: Erythrocyte Sedimentation Rate 7 MM/HR (0-20)
[2023-07-23 12:38] LABS: HBS Num1 17.29 mIU/mL (0-7.99); HBc Num1 0.12 S/CO (0.00-0.79); HBsAGNum1 0.37 S/CO (0.00-0.99); Hepatitis B Core Antibody Nonreactive (Nonreactive); Hepatitis B Surface Antigen Negative (Negative); ~Hepatitis A Antibody IgM Nonreactive (Nonreactive); ~Hepatitis B Surface Antibody REACTIVE (Nonreactive); ~Hepatitis C Antibody Nonreactive (Nonreactive)
[2023-07-23 12:50] LABS: C Reactive Protein < 0.10 mg/dL (< or = 0.50)
[2023-07-25 13:19] LABS: IgA 260 mg/dL (47-310); IgG 1408 mg/dL (600-1640); IgM 274 mg/dL (50-300)
[2023-07-26 07:48] LABS: TS Negative Control Passed; TS Panel A 0; TS Panel B 0; TS Positive Control Passed; TSpotTB Negative (Negative)
[2023-07-26 17:23] LABS: HLA B27 Positive (Negative)
== END 2023-07-23 09:47 | disposition home or self-care (01) ==
LOC: HO.LAB 09:46
PROVIDERS: PCP Family Medicine; Visit Provider Nurse Practitioner Family
DX: M25.50 Pain in unspecified joint (principal); L40.9 Psoriasis, unspecified; F41.9 Anxiety disorder, unspecified; F32.A Depression, unspecified; D68.01 Von Willebrand disease, type 1; Z84.0 Family history of diseases of the skin and subcutaneous tissue; Z79.899 Other long term (current) drug therapy
CPT/HCPCS: 36415; 73130; 73562; 73630; 82784; 85025; 85652; 86140; 86481; 86704; 86706; 86709; 86803; 86812; 87340; 99202

== ENCOUNTER 2023-07-23 09:46 | Outpatient (AMB) | payer OTHER, SELFPAY ==
--- NOTE | 2023-07-23 09:47 | A.OFFVIS_ITS ---
Intake Vital Signs 07/23/23 09:48 Height 5 ft 5 in Weight 128 lb 15.527 oz BMI 21.5 BP 110/60 Blood Pressure Location Rt brachial Position Sitting Pulse 69 Pulse Source Pulse Oximeter Temp 97.5 F Temp Source Skin Pulse Oximetry (%) 99 Oxygen Delivery Method Room Air Intake Visit Reasons: Joint pain Intake Note: New patient, internally referred, presents to office today for joint pain. Joints affected:multiple joints Pain began approx: age 12 Has tried: PT, OTC pain meds, excercise, stretches, rest, toicals Meter Inspector Required: No Accompanied by: Self / Same As Patient Allergies No Known Allergies Allergy (Verified 07/23/23 09:53) HPI HPI Comments History of Present Illness Details Ms. Bailon 37-year-old female presents for evaluation of multiple joint pains. Patient reports that she has had pain in her knees started from the age of 12 and it has progressed since she aged. She has used ibuprofen, rest, exercise, stretching and topical. She has a strong family history of inflammatory arthritis-mom has rheumatoid and both brothers has psoriatic arthritis and psoriasis. Patient reports that she is stiff for at least 1 hour in the morning. She denies uveitis. She is following with GI because of blood and mucus in her stool. She also has bouts of diarrhea and constipation. She reports that GI is evaluating her for possible Crohn's and she has a GI series scheduled for beginning of September 2023. The patient shares that she has had moles removed and they were positive for cancerous cells. GI: mucous and blood in stool, scheduled for a lower GI series in September - evaluated for Crohns. History of skin cancer cells in moles that were removed. very stiff in the morning for at least an hour. she exercises 4 times per week for 35 to 40 minutes. Right knee more problematic lower extremity instability, with lower back pain and radiating numbess/pain down the right leg mostly. no uveiitis, has psoriasis in eyebrow and scalp -scaly itch patch. Has small dry patches on scalp, and eyebrows-denies treatment GI visit 05/07/2023: 37 y/o F- relocated from [place]- she had an issue back a couple years ago- she was to see GI- she never followed through due to relocation She says she is discontinue all of her medications and due to relocating and fi nding a PCP and insurance issues C/o - early satiety, stools loose- N/V sometimes nothing specific brings it on or makes it better- no weight loss-no f/chills- has fatigue-she is depressed - see therapist-she has anxiety and depression. She does get her chest pain from time to time however this has been chronic -per her report no cardiac findings In she says that she has a ?myraid of psychologic problems she has an episode of abdominal pain - 2-3 x month-she does not get heartburn she- gets constipated if not drinking water- Typically 1 BM daily- No known-family hx IBD/ crohn's PFSH Medical History (Updated 07/23/23 @ 12:39 by HONEY Bojorquez-) Psoriasis Family history of psoriasis in brother Mohs defect Anxiety Depression Surgical History H/O: hysterectomy S/P tonsillectomy Family History (Updated 07/23/23 @ 09:52 by CELESTINE Herrera) Mother Asthma High blood pressure High cholesterol Diabetes Cardiovascular disease Clotting disorder Thyroid disorder Alcoholism Psychiatric disorder Rheumatoid arthritis Osteoarthritis Father Asthma Alcoholism Maternal Grandmother Asthma Breast cancer Paternal Grandmother Asthma Brother Asthma Other Psoriatic arthritis Social History (Updated 07/23/23 @ 09:51 by CELESTINE Herrera) Household Members: Family Household Members Other:: , - 2 older kids Housing: House Are you a primary healthcare science specialist to a significant other at home: No Do you presently have visiting nurse or other home services: No 75 years or older and lives alone: No Alcohol intake: current Alcohol intake frequency: holidays/special occasions only Patient Tobacco Use Status: Never used Tobacco e-Cigarette/Vaping Use: Never Used Special abdelrahman needs: No service: No Current occupational status: disabled Vision needs: Yes (wears prescription glasses.) Female Reproductive History Menstrual Total pregnancies: 2 Review of Systems Const All systems reviewed & are unremarkable except as noted in HPI and below Physical Exam Vital Signs: Last Vital Signs Temp 97.5 F 07/23/23 09:48 Pulse 69 07/23/23 09:48 BP 110/60 07/23/23 09:48 Pulse Ox 99 07/23/23 09:48 Oxygen Delivery Method Room Air 07/23/23 09:48 BMI result Body Mass Index 21.5 APPEARANCE: Patient in no acute distress, groomed, nourished EYES no redness, normal EARS:? External ear normal. NOSE/SINUS:? Airflow through both nares, no nasal discharge, no bleeding THROAT:? Oral mucosa moist, no ulcerations NECK:? No thyromegaly or masses, no adenopathy, trachea midline. HEART:? Regular rhythm, S1-S2 heard, no murmurs, rubs or gallops. LUNG:? Clear to percussion and auscultation EXTREMITIES:? No edema, no calf tenderness, normal peripheral pulses. NEURO:? Oriented and alert x3.? No focal weakness.? Reflexes symmetric.? Gait mildly antalgic SKIN:? Mild dry scaling to eyebrows and scalp. No objective signs of Raynaud's phenomenon. JOINT EXAM: Cervical Spine:.? Full range of motion without pain; no tenderness. Thoracic Spine:.? No scoliosis.? No tenderness on palpation. Lumbar Spine:.? Alignment normal.? Full range of motion without pain, but modertate tenderness to right side that continues down the buttocks and stops at the knee. Chest Wall:.? No tenderness, swelling, increased warmth or erythema. Hands:.? Normal pain-free range of motion without tenderness, swelling, increased warmth or erythema. Able to make a full fist and has a good mexican food cook strength. Wrists:.? Normal pain-free range of motion with mild center tenderness but no swelling, increased warmth or erythema. Elbows:. Normal pain-free range of motion with lateral tenderness and mild swelling to left lateral with mild warmth but no erythema. Shoulders:.?? Full range of motion without pain. No tenderness, weakness, swelling, increased warmth or erythema. Hips:.? Full range of motion without pain. Hip bursa:.? No tenderness. Knees:.?? Normal pain-free range of motion with medial tenderness R>L, but no swelling, increased warmth or erythema.? There is no effusion or crepitation Ankles:.? Normal pain-free range of motion with bilateral tenderness at achilles but no swelling, increased warmth or erythema. Feet:.? Normal pain-free range of motion without tenderness, swelling, increased warmth or erythema. Tender points:? tenderness to digital palpation at the occiput, trapezius, second rib, lateral epicondyle L>R, knees, and right gluteal area. ? Results Reviewed Results Reviewed: Laboratory Tests 04/18/23 09:40 WBC 6.7 RBC 4.62 Hgb 13.9 Hct 42.2 ESR 6 Creatinine 0.80 Estimated GFR > 60 25-OH Vitamin D Total 17.7 L TSH 3.43 Rheumatoid Factor < 13.0 Cycl Citrul Peptide IgG <16 RANDEE Screen NEGATIVE Assessment & Plan Assessment & Plan (1) Polyarthralgia: Code(s): M25.50 - Pain in unspecified joint (2) Family history of psoriasis in brother: Code(s): Z84.0 - Family history of diseases of the skin and subcutaneous tissue (3) Psoriasis: Code(s): L40.9 - Psoriasis, unspecified (4) Anxiety and depression: Code(s): F41.9 - Anxiety disorder, unspecified; F32.A - Depression, unspecified (5) Von Willebrand disease type [place]: Code(s): D68.01 - Von Willebrand disease, type 1 Plan #Polyarthralgia/Psoriasis: The patient has relocated from [place]. The patient has negative serology (04/2023) for RANDEE, rheumatoid factor, CCP and her ESR and CRP are within normal range. However, given her history of psoriasis and family history of rheumatoid arthritis and sorry adequate arthritis, it is possible that the patient has onset of an inflammatory arthritis, such as psoriatic arthritis. There is no swelling on PE to any of her joints nor does she report swelling. With her low back pain and knee pain, tenderness to right lateral epicondyle and possible GI concerns, it is reasonable to move into the direction of an inflammatory AxSpA. I will obtain imaging and additional labs such as HLA B27 to evaluate further. I will also prescribe a course of prednisone and reassess effectiveness in resolving or reducing joint pain. If she demonstrates adequate response to prednisone and has return of symptoms off of prednisone, then we will consider to start her on DMARD therapy. I discussed this plan with the patient and she seemed agreeable. Discussed the possible side effects with short-term prednisone to include but not limited to weight gain, insomnia and medication interactions given that she is on several mood stabilizers. #Von Willebrand/Anxiety and Dep: I discussed with patient that prednisone can sometimes worsened depression so she can look out for any increased symptoms and stopped the medication in the event that happens. Additionally with her history of von Willebrand's type 1 there is no real or immediate concern for increased bleeding on prednisone. #Training Consultant Use: I will also obtain TB and hep panel for consideration for possible bioDMARD therapy. Spent 50 minutes researching, reviewing history, evaluating patient and documenting Follow-up in 4 weeks Orders: Orders XR knee LT 3V Today M25.50 - Pain in unspecified joint HLA B27 Today M25.50 - Pain in unspecified joint Erythrocyte Sedimentation Rate Today M25.50 - Pain in unspecified joint Complete Blood Count Auto Diff Today M25.50 - Pain in unspecified joint, Z79.899 - Other [facility] drug therapy Immunoglobulins,IgG IgA IgM Today Z84.0 - Family history of diseases of the skin and subcutaneous tissue XR foot RT min 3V Today M25.50 - Pain in unspecified joint XR foot LT min 3V Today M25.50 - Pain in unspecified joint XR hand LT min 3V Today M25.50 - Pain in unspecified joint XR knee RT 3V Today M25.50 - Pain in unspecified joint XR hand RT min 3V Today M25.50 - Pain in unspecified joint C Reactive Protein Today M25.50 - Pain in unspecified joint Hepatitis A,B,C Profile Today Z84.0 - Family history of diseases of the skin and subcutaneous tissue T Spot TB Today Z84.0 - Family history of diseases of the skin and subcutaneous tissue Medications: New prednisone 3 tablets per x 7 days 2 tablets per x 7 days 1 tablets per x 7 days 45 tabs 0RF M25.50 - Pain in unspecified joint, Z84.0 - Family history of diseases of the skin and subcutaneous tissue Coding Level of Care Code New Pt Level 5 (00024) Diagnoses Polyarthralgia M25.50 Family history of psoriasis in brother Z84.0 Psoriasis L40.9 Anxiety and depression F41.9; F32.A Von Willebrand disease type IA D68.01
[2023-07-23 09:48] VITALS: BP 110/60; PULSE 69; TEMP 36.4; O2SAT 99; BMI 21.5
== END 2023-07-23 10:41 | disposition home or self-care (01) ==
PROVIDERS: PCP Family Medicine; Visit Provider Nurse Practitioner Family
DX: M25.59 Pain in other specified joint (principal); Z84.0 Family history of diseases of the skin and subcutaneous tissue; L40.9 Psoriasis, unspecified; F41.9 Anxiety disorder, unspecified; F32.A Depression, unspecified; D68.01 Von Willebrand disease, type 1
CPT/HCPCS: 99204

== ENCOUNTER 2023-08-21 10:16 | Outpatient (REF) | payer OTHER, SELFPAY ==
[2023-08-21 12:22] LABS: Alanine Aminotransferase 11 U/L (0-31); Albumin Level 4.2 g/dL (3.5-5.0); Alkaline Phosphatase 57 U/L (39-117); Anion Gap 9 (12-20); Aspartate Amino Transferase 14 U/L (5-31); Bilirubin Total 0.6 mg/dL (0.0-1.0); Blood Urea Nitrogen 19 mg/dL (9-16); Carbon Dioxide 27 mmol/L (22-29); Chloride 108 mmol/L (96-108); Cholesterol 211 mg/dL (<200); Estimated Glomerular Filt Rate > 60; Glucose Fasting 85 mg/dL (60-99); HDL Cholesterol 39 mg/dL (>40); LDL Cholesterol Calculated 158 mg/dL (<100); Potassium 3.8 mmol/L (3.3-5.1); Sodium 140 mmol/L (135-145); Total Protein 7.4 g/dL (6.5-8.0); Triglycerides 71 mg/dL (<150)
[2023-08-21 12:28] LABS: Vitamin D 25-OH Total 26.2 ng/mL (>30)
== END 2023-08-21 10:17 | disposition home or self-care (01) ==
LOC: HO.WFDLDS 10:16
PROVIDERS: Visit Provider Family Medicine
DX: Z00.00 Encounter for general adult medical examination without abnormal findings (principal); R79.89 Other specified abnormal findings of blood chemistry; E78.00 Pure hypercholesterolemia, unspecified; E55.9 Vitamin D deficiency, unspecified
CPT/HCPCS: 36415; 80053; 80061; 82306

== ENCOUNTER 2023-08-29 13:32 | Outpatient (AMB) | payer OTHER, SELFPAY ==
[2023-08-29 13:43] VITALS: BP 120/68; PULSE 68; O2SAT 98; BMI 21.5
--- NOTE | 2023-08-29 13:43 | MHC.PC.OV ---
Vital Signs 08/29/23 13:43 Height 5 ft 5 in Weight 129 lb 6 oz BMI 21.5 BP 120/68 Blood Pressure Location Lt brachial Pulse 68 Pulse Source Pulse Oximeter Pulse Oximetry (%) 98 Oxygen Delivery Method Room Air Intake Visit Reasons: f/u anxiety/depression Intake Note: Patient is here to follow up on anxiety and depression. Allergies No Known Allergies Allergy (Verified 08/29/23 13:44) Tobacco use date assessed: 08/29/23 Dental Screening Dental Screen Date: 07/16/23 HPI f/u anxiety/depression HPI Details 37 y/o female presents to f/u anxiety/depression. Continued escitalopram and added Abilify. She also has concerns regarding MS due to family history and some numbness/tingling though this may be due to her above anxiety and depression. PHQ-9 18, FRED-7 11 today. She states she does have a therapist but no psychiatrist. She denies any SI/HI. Had seen rheumatology 07/23/23 for joint pain. Had ordered labs and given her prednisone. She is requesting referral to dermatology for her moles. Labs were drawn 08/21/23. Reviewed labs with pt. Triglycerides 71. TC 211. LDL 158. HDL low at 39. Ongoing low vitamin D level of 26.2. [facility] Medical History (Updated 08/29/23 @ 14:15 by Akin Hernandez MD) Psoriasis Family history of psoriasis in brother Mohs defect Anxiety Depression Surgical History H/O: hysterectomy S/P tonsillectomy Family History (Updated 08/29/23 @ 13:46 by Gela Camarena CMA) Mother Asthma High blood pressure High cholesterol Diabetes Cardiovascular disease Clotting disorder Thyroid disorder Alcoholism Psychiatric disorder Rheumatoid arthritis Osteoarthritis Substance abuse Mental health disorder Father Asthma Alcoholism Maternal Grandmother Asthma Breast cancer Paternal Grandmother Asthma Brother Asthma Substance abuse Mental health disorder Sister Substance abuse Mental health disorder Other Psoriatic arthritis Social History (Updated 07/23/23 @ 09:51 by CELESTINE Herrera) Household Members: Family Household Members Other:: , - 2 older kids Housing: House Are you a primary live in caregiver to a significant other at home: No Do you presently have visiting nurse or other home services: No 75 years or older and lives alone: No Alcohol intake: current Alcohol intake frequency: holidays/special occasions only Patient Tobacco Use Status: Never used Tobacco e-Cigarette/Vaping Use: Never Used Special abdelrahman needs: No service: No Current occupational status: disabled Vision needs: Yes (wears prescription glasses.) Questionnaire PHQ-9 Over the last 2 weeks, how often have you been bothered by any of the following problems? 1. Little interest or pleasure in doing things: several days 2. Feeling down, depressed, or hopeless: more than half the days 3. Trouble falling or staying asleep, or sleeping too much: several days 4. Feeling tired or having little energy: nearly every day 5. Poor appetite or overeating: nearly every day 6. Feeling bad about yourself - or that you are a failure or have let yourself or your family down: nearly every day 7. Trouble concentrating on things, such as reading the newspaper or watching television: nearly every day 8. Moving or speaking so slowly that other people could have noticed. Or the opposite - being so fidgety or restless that you have been moving around a lot more than usual: several days 9. Thoughts that you would be better off or of hurting yourself in some way: several days Total score: 18 Depression Screening Interpretation: Positive Depression Screening Done: Yes 77661 - PHQ-9 Billing: Yes Source: Developed by Drs. Frederick Main, Tatiana Navas, Charan Shanks and colleagues, with an educational hafsa from [employer]. Thrive Questionnaire Date Thrive assessed: 07/16/23 FRED-7 AMB Questionnaire FRED-7 Date FRED - 7 assessed: 08/29/23 Feeling nervous, anxious, or on edge: 1 = Several days Not being able to stop or control worryin = Several days Worrying too much about different things: 1 = Several days Trouble relaxin = Nearly every day Being so restless that it is hard to sit still: 3 = Nearly every day Becoming easily annoyed or irritable: 1 = Several days Feeling afraid as if something awful might happen: 1 = Several days Total FRED-7 score (0-4 normal; 5-9 mild; 10-14 moderate; 15-21 severe): 11 Source: Developed by Drs. Frederick LTatiana Nguyễn, Charan Shanks and colleagues, with an educational hafsa from [employer]. FRED-7 Assessment Billing FRED-7 Assessment Tool: FRED-7 Assessment 12491 Review of Systems Const Denies chills, Denies fatigue, Denies fever(s), Denies headache(s) and Denies weakness ENT Denies dizziness and Denies headache(s) Card Denies dyspnea Resp Denies cough, Denies dyspnea, Denies wheezing and Denies other (shortness of breath) Musc Denies numbness and Denies tingling Neuro Denies dizziness, Denies headache(s), Denies numbness, Denies tingling and Denies weakness Psych Reports anxiety and Reports depression Endo Denies fatigue Aller/Immun Denies wheezing Physical exam (Primary Care) Vital Signs: Last Vital Signs Pulse 68 08/29/23 13:43 BP 120/68 08/29/23 13:43 Pulse Ox 98 08/29/23 13:43 Oxygen Delivery Method Room Air 08/29/23 13:43 BMI result Body Mass Index 21.5 Tobacco/Smoking Status: Tobacco use Status Tobacco use date assessed 08/29/23 08/29/23 13:51 Patient Tobacco Use Status Never used Tobacco 08/29/23 13:51 e-Cigarette/Vaping Use Never Used 08/29/23 13:51 PHQ-9: PHQ-9 Score PHQ-9: Total score 18 08/29/23 13:55 Depression Screening Interpretation: Positive Thrive Assessment: Date of Thrive Assessment Date Thrive assessed 07/16/23 08/29/23 13:51 Const General: well developed; No acute distress Nutritional Appearance: well nourished Orientation/consciousness: patient oriented x3 HENMT Head: Yes normocephalic and Yes atraumatic Eyes General: appearance normal, both eyes and all related structures Pupils: Equal, round and reactive pupils present EOM: EOMs intact bilaterally Resp Effort & Inspection: normal respiratory effort Neuro General: patient oriented x3 and gait normal Cranial nerves: Yes Equal, round and reactive pupils present Psych Affect: normal affect Assessment and Plan Assessment & Plan (1) Anxiety and depression: Code(s): F41.9 - Anxiety disorder, unspecified; F32.A - Depression, unspecified Plan: Patient?notes?that?she?has?a?psychologist/therapist?but?no?psych?med?provider. Will?try?to?make?a?referral?to?Psychiatry Will?continue?escitalopram,?discontinue?Abilify?and?start?Latuda?which?she?says?has?helped?in?the?past (combination?of?escitalopram?and?Latuda?had?helped). Patient?may?also?have?and?inflammatory?arthritis?which?may?also?be?contributing?to?anxiety?depression.??Encouraged?her?to?follow-up?with?rheumatology (2) Left-sided weakness: Code(s): R53.1 - Weakness Plan: Left-sided?weakness,?memory?changes?and?family?history?of?MS Will?check?MR?brain Will?refer?to?Neurology?if?needed (3) Memory changes: Code(s): R41.3 - Other amnesia Plan: As?above (4) Family history of MS (multiple sclerosis): Code(s): Z82.0 - Family history of epilepsy and other diseases of the nervous system Plan: As?above (5) Polyarthralgia: Code(s): M25.50 - Pain in unspecified joint Plan: Patient?now?followed?by?rheumatology?who?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 Follow-up?with?rheumatology?as?recommended (6) Neoplasm of uncertain behavior of skin: Code(s): D48.5 - Neoplasm of uncertain behavior of skin Plan: Referred?to?dermatology (7) Low vitamin D level: Code(s): R79.89 - Other specified abnormal findings of blood chemistry Plan: Low?vitamin-D?despite?vitamin-D?supplementation Will?increase?to?high?dose?vitamin-D?weekly?x2?months?then?resume?daily?vitamin-D?supplementation?at?a?lower?dose (8) Hypercholesterolemia: Code(s): E78.00 - Pure hypercholesterolemia, unspecified Plan: Lipids?are?still?high Start?Zetia Holding?off?on?considering?a?statin?medication?due?to?patient's?complaints?of?muscle?and?joint?pain?already. Orders: Orders MR head/brain wo con Today R41.3 - Other amnesia, R53.1 - Weakness Referrals Psychiatry Referral F32.A - Depression, unspecified, F41.9 - Anxiety disorder, unspecified Dermatology Referral D48.5 - Neoplasm of uncertain behavior of skin Medications: New lurasidone (Latuda) must administer with food (at least 350 calories) 20 mg PO DAILY 30 days 30 tabs 2RF cholecalciferol (vitamin D3) 1,250 mcg PO QWEEK 28 days 4 caps 1RF ezetimibe (Zetia) 10 mg PO DAILY 90 days 90 tabs 2RF Discontinued aripiprazole (Abilify) Discontinued Reason: Doctor's Order 2 mg PO BEDTIME 30 days 30 tabs 1RF Coding Level of Care Code Est Pt Level 4 (96591) Diagnoses Anxiety and depression F41.9; F32.A Left-sided weakness R53.1 Memory changes R41.3 Family history of MS (multiple sclerosis) Z82.0 Polyarthralgia M25.50 Neoplasm of uncertain behavior of skin D48.5 Low vitamin D level R79.89 Hypercholesterolemia E78.00 Additional Codes FRED-7 Assessment Billing - FRED-7 Assessment Tool: FRED-7 Assessment 61340 ([id number])
== END 2023-08-29 14:21 | disposition home or self-care (01) ==
PROVIDERS: PCP Family Medicine; Visit Provider Family Medicine
DX: R53.1 Weakness (principal); F41.9 Anxiety disorder, unspecified; F32.A Depression, unspecified; R41.3 Other amnesia; Z82.0 Family history of epilepsy and other diseases of the nervous system; M25.50 Pain in unspecified joint; D48.5 Neoplasm of uncertain behavior of skin; R79.89 Other specified abnormal findings of blood chemistry; E78.00 Pure hypercholesterolemia, unspecified
CPT/HCPCS: 96127; 99214

== ENCOUNTER 2023-10-01 10:49 | Outpatient (AMB) | payer OTHER, SELFPAY ==
--- NOTE | 2023-10-01 10:52 | MHC.PC.OV ---
Vital Signs 10/01/23 10:53 Height 5 ft 5 in Weight 129 lb 2 oz BMI 21.5 BP 120/62 Blood Pressure Location Lt brachial Position Sitting Pulse 64 Pulse Source Pulse Oximeter Pulse Oximetry (%) 100 Oxygen Delivery Method Room Air Intake Visit Reasons: f/u anxiety/depression Intake Note: Patient is here to follow up on anxiety and depression. Allergies No Known Allergies Allergy (Verified 10/01/23 10:54) Medication List - Last Reconciled 10/01/23 by Akin Hernandez MD albuterol sulfate 90 mcg/actuation (ProAir HFA) 2 puffs inhalation Q4-6H PRN 30 days cholecalciferol (vitamin D3) 125 mcg PO DAILY 30 days cholecalciferol (vitamin D3) 1,250 mcg PO QWEEK 28 days escitalopram oxalate 10 mg PO DAILY 30 days ezetimibe (Zetia) 10 mg PO DAILY 90 days fluticasone propionate 110 mcg/actuation (Flovent HFA) 1 puff inhalation Q12H 30 days lurasidone (Latuda) 20 mg PO DAILY 30 days prednisone 3 tablets per x 7 days 2 tablets per x 7 days 1 tablets per x 7 days Tobacco use date assessed: 10/01/23 Dental Screening Dental Screen Date: 07/16/23 HPI f/u anxiety/depression HPI Details 38 y/o female presents to f/u anxiety/depression and to f/u MRI brain for L sided weakness and memory changes. Also started Zetia for high cholesterol. Continued escitalopram and started Latuda. She reports she has never received her Latuda due to insurance issues. She continues her escitalopram. PHQ-9 24, FRED-7 17 today. She reports she thinks about self harm half the days. She describes it as a thought but denies any plan. She does not seem to have an appt. scheduled for her MRI. Pt reports chest pain that starts in the epigastric region. [facility] Medical History Psoriasis Family history of psoriasis in brother Mohs defect Anxiety Depression Surgical History H/O: hysterectomy S/P tonsillectomy Family History Mother Asthma High blood pressure High cholesterol Diabetes Cardiovascular disease Clotting disorder Thyroid disorder Alcoholism Psychiatric disorder Rheumatoid arthritis Osteoarthritis Substance abuse Mental health disorder Father Asthma Alcoholism Maternal Grandmother Asthma Breast cancer Paternal Grandmother Asthma Brother Asthma Substance abuse Mental health disorder Sister Substance abuse Mental health disorder Other Psoriatic arthritis Social History Household Members: Family Household Members Other:: , - 2 older kids Housing: House Are you a primary care trainer to a significant other at home: No Do you presently have visiting nurse or other home services: No 75 years or older and lives alone: No Alcohol intake: current Alcohol intake frequency: holidays/special occasions only Patient Tobacco Use Status: Never used Tobacco e-Cigarette/Vaping Use: Never Used Special abdelrahman needs: No service: No Current occupational status: disabled Vision needs: Yes (wears prescription glasses.) Questionnaire PHQ-9 Over the last 2 weeks, how often have you been bothered by any of the following problems? 1. Little interest or pleasure in doing things: nearly every day 2. Feeling down, depressed, or hopeless: nearly every day 3. Trouble falling or staying asleep, or sleeping too much: nearly every day 4. Feeling tired or having little energy: more than half the days 5. Poor appetite or overeating: more than half the days 6. Feeling bad about yourself - or that you are a failure or have let yourself or your family down: nearly every day 7. Trouble concentrating on things, such as reading the newspaper or watching television: nearly every day 8. Moving or speaking so slowly that other people could have noticed. Or the opposite - being so fidgety or restless that you have been moving around a lot more than usual: nearly every day 9. Thoughts that you would be better off or of hurting yourself in some way: more than half the days Total score: 24 Depression Screening Interpretation: Positive Depression Screening Done: Yes 80291 - PHQ-9 Billing: Yes Source: Developed by Drs. Frederick Main, Tatiana Navas, Charan Shanks and colleagues, with an educational hafsa from [employer]. Thrive Questionnaire Date Thrive assessed: 07/16/23 FRED-7 AMB Questionnaire FRED-7 Date FRED - 7 assessed: 10/01/23 Feeling nervous, anxious, or on edge: 2 = More than half the days Not being able to stop or control worryin = More than half the days Worrying too much about different things: 2 = More than half the days Trouble relaxin = Nearly every day Being so restless that it is hard to sit still: 3 = Nearly every day Becoming easily annoyed or irritable: 3 = Nearly every day Feeling afraid as if something awful might happen: 2 = More than half the days Total FRED-7 score (0-4 normal; 5-9 mild; 10-14 moderate; 15-21 severe): 17 Source: Developed by Drs. Frederick Main, Tatiana Navas, Charan Shanks and colleagues, with an educational hafsa from [employer]. FRED-7 Assessment Billing FRED-7 Assessment Tool: FRED-7 Assessment 25294 Review of Systems Const Denies chills, Denies fatigue, Denies fever(s), Denies headache(s) and Denies weakness ENT Denies dizziness and Denies headache(s) Card Reports chest pain and Denies dyspnea Resp Denies cough, Denies dyspnea, Denies wheezing and Denies other (shortness of breath) Musc Denies numbness and Denies tingling Neuro Denies dizziness, Denies headache(s), Denies numbness, Denies tingling and Denies weakness Psych Reports anxiety and Reports depression Endo Denies fatigue Aller/Immun Denies wheezing Physical exam (Primary Care) Vital Signs: Last Vital Signs Pulse 64 10/01/23 10:53 BP 120/62 10/01/23 10:53 Pulse Ox 100 10/01/23 10:53 Oxygen Delivery Method Room Air 10/01/23 10:53 BMI result Body Mass Index 21.5 Tobacco/Smoking Status: Tobacco use Status Tobacco use date assessed 10/01/23 10/01/23 11:02 Patient Tobacco Use Status Never used Tobacco 10/01/23 10:55 e-Cigarette/Vaping Use Never Used 10/01/23 10:55 PHQ-9: PHQ-9 Score PHQ-9: Total score 10/01/23 11:02 Depression Screening Interpretation: Positive Thrive Assessment: Date of Thrive Assessment Date Thrive assessed 07/16/23 10/01/23 10:55 Const General: well developed; No acute distress Nutritional Appearance: well nourished Orientation/consciousness: patient oriented x3 HENMT Head: Yes normocephalic and Yes atraumatic Eyes General: appearance normal, both eyes and all related structures Pupils: Equal, round and reactive pupils present EOM: EOMs intact bilaterally Resp Effort & Inspection: normal respiratory effort Neuro General: patient oriented x3 and gait normal Cranial nerves: Yes Equal, round and reactive pupils present Psych Affect: normal affect Assessment and Plan Assessment & Plan (1) Anxiety and depression: Code(s): F41.9 - Anxiety disorder, unspecified; F32.A - Depression, unspecified Plan: Ongoing?severe?anxiety?and?depression. She?says?she?had?benefited?from?Latuda?and?escitalopram?in?the?past. She?was?able?to?get?escitalopram?and?start?this?but?was?unable?to?get?the?Latuda.??Will?send?script?for?Abilify She?now?has?a?psychotherapist?but?does?not?have?a?psychiatrist?yet.??I?have?asked?the?nurse?navigator?to?see?her?today?and?also?to?continue?to?help?us?connect?her?with?a?psychiatrist?soon?as?possible. Patient?acknowledges?thoughts?of?self-harm?but?denies?any?plan (2) Memory changes: Code(s): R41.3 - Other amnesia Plan: Memory?changes?and?some?left-sided?weakness. She?has?an?MRI?scheduled?for?next?week (3) Hypercholesterolemia: Code(s): E78.00 - Pure hypercholesterolemia, unspecified Plan: Will?be?due?to?recheck?her?lipids?with?next?visit She?is?now?on?Zetia.??Tolerating?fairly?well. Continue?and?we?will?recheck?lipid (4) Low vitamin D level: Code(s): R79.89 - Other specified abnormal findings of blood chemistry Plan: Will?be?due?to?check?vitamin-D?levels?with?next?visit She?is?on?high?dose?cholecalciferol She?has?a?refill?on?this?and?then?will?start?daily?cholecalciferol?dose (5) Chest pain: Code(s): R07.9 - Chest pain, unspecified Plan: Epigastric?pain?radiating?into?chest. EKG:??Mild?sinus?bradycardia;?57?beats?per?minute,?normal?axis,?no?hypertrophy,?no?ST-T-wave?changes Likely?gastritis?and?possibly?secondary?to?anxiety. Orders: Orders AMB EKG-In Office Today R07.9 - Chest pain, unspecified, R10.13 - Epigastric pain Lipid Panel Today Z00.00 - Encounter for general adult medical examination without abnormal findings Comprehensive [place]. Panel Fast Today Z00.00 - Encounter for general adult medical examination without abnormal findings Vitamin D 25-OH Total Today E55.9 - Vitamin D deficiency, unspecified Medications: New aripiprazole (Abilify) 4 mg (2 x 2 mg) PO DAILY 30 days 60 tabs 1RF omeprazole 20 mg PO DAILY 90 days 90 caps 2RF Discontinued lurasidone (Latuda) must administer with food (at least 350 calories) Discontinued Reason: Insurance Denied 20 mg PO DAILY 30 days 30 tabs 2RF Coding Level of Care Code Est Pt Level 4 (85686) Diagnoses Anxiety and depression F41.9; F32.A Memory changes R41.3 Hypercholesterolemia E78.00 Low vitamin D level R79.89 Chest pain R07.9 Additional Codes FRED-7 Assessment Billing - FRED-7 Assessment Tool: FRED-7 Assessment 47372 ([id number])
[2023-10-01 10:53] VITALS: BP 120/62; PULSE 64; O2SAT 100; BMI 21.5
== END 2023-10-01 12:06 | disposition home or self-care (01) ==
PROVIDERS: PCP Family Medicine; Visit Provider Family Medicine
DX: R07.9 Chest pain, unspecified (principal); F41.9 Anxiety disorder, unspecified; F32.A Depression, unspecified; R41.3 Other amnesia; E78.00 Pure hypercholesterolemia, unspecified; R79.89 Other specified abnormal findings of blood chemistry
CPT/HCPCS: 93000; 96127; 99214

== ENCOUNTER 2023-10-08 08:42 | Outpatient (REF) | payer OTHER, SELFPAY ==
--- NOTE | ~2023-10-08 | MR_ITS ---
EXAMINATION: MR BRAIN WITHOUT CONTRAST CLINICAL INFORMATION: Weakness COMPARISON: None TECHNIQUE: Multiplanar multisequence MR imaging of the brain was obtained without intravenous contrast. FINDINGS: There is no acute infarct on diffusion-weighted imaging. There is no intracranial hemorrhage on iron-sensitive imaging. Susceptibility artifact along the anterior falx likely reflects dural calcification. No extra-axial collection or mass effect/herniation. Normal parenchymal signal characteristics. No hydrocephalus. The ventricles are normal in morphology and size. The major flow voids at the skull base are preserved. The midline structures are normal. The cerebellar tonsils are normally positioned. The craniocervical junction is normal. Marrow signal is within normal limits. The visualized soft tissues are without significant abnormality. Left maxillary sinus retention cyst. MR/MR head/brain wo con IMPRESSION: Unremarkable noncontrast MRI of the brain.
== END 2023-10-08 08:43 | disposition home or self-care (01) ==
LOC: HO.MRI 08:42
PROVIDERS: PCP Family Medicine; Visit Provider Family Medicine
DX: R53.1 Weakness (principal); R41.3 Other amnesia
CPT/HCPCS: 70551

== ENCOUNTER 2023-11-05 07:58 | Outpatient (REF) | payer OTHER, SELFPAY ==
--- NOTE | ~2023-11-05 | FL_ITS ---
EXAMINATION: XR FLUOROSCOPY UPPER GI WITH SMALL BOWEL SERIES CLINICAL INFORMATION: Abdominal pain. Dysphagia COMPARISON: None TECHNIQUE: Fluoroscopic air contrast upper GI examination was performed utilizing standard techniques with thin and thick barium and effervescent granules. Numerous spot images were obtained. This was followed by small bowel series using standard technique with numerous overhead radiographs during propagation of contrast through the small bowel into the ascending colon/ileal cecal valve. Spot images were obtained of any abnormal appearing small bowel. FINDINGS: UPPER GI: Lateral cine images of the oropharynx and hypopharynx demonstrate normal swallow mechanism with normal epiglottic inversion and soft palate elevation. No tracheal penetration, glottic or subglottic aspiration identified. No nasopharyngeal reflux present. A small pharyngeal pouch is present. There was no significant cricopharyngeal achalasia. Dual and single contrast images of the esophagus demonstrate normal caliber, contour, and mucosal pattern. No evidence of stricture, mass, or ulcerations identified. Esophageal peristalsis was normal. No evidence of hiatus hernia identified. No significant gastroesophageal reflux was seen during the course of the examination and on reflux views. Dual contrast and single contrast images of the stomach demonstrated a normal contour. Evaluation of the gastric mucosa is limited due to lack of distention from poor tolerance of the effervescent granules. The gastric mucosal folds have a thickened appearance, which suggests gastritis, however, this may be also due to underdistention of the stomach. No obvious masses or ulcerations are seen. And Contrast freely passed into the gastric antrum and duodenal bulb without delay. Single and air-contrast images of the duodenal bulb demonstrate no abnormality. The duodenal sweep has a normal appearance, course, and mucosal fold appearance. No malrotation. SMALL BOWEL FOLLOW-THROUGH: Beauty Operator view demonstrates a trace inferior thoracic dextroconvex scoliosis. Moderate retained stool present. No abnormal soft tissue calcifications. Lung bases are clear. Heart size is normal. No organomegaly. Bony structures appear normal. SI joints and hip joints appear normal. The imaged small bowel has a normal fold pattern and caliber. No strictures, or masses are present. The terminal ileum is well visualized and normal in appearance. Contrast is seen in the right colon at 90 minutes. At the end of the examination, a moderate amount of barium remains in the stomach, suggestive of hypomotility. FLUOROSCOPY TIME: 3 minutes 25 seconds Number of Spot Images: 14 Number of Cine: 11 DOSE AREA PRODUCT: 1417 uGy-m2 (microgray-meter squared) FL/FL upper GI w air w SBFT IMPRESSION: 1. Tiny lateral pharyngeal pouch. 2. Limited evaluation of the gastric mucosa due to lack of distention of the stomach from poor tolerance of the effervescent granules. The gastric rugal folds have a thickened appearance, which suggests gastritis. 3. Unremarkable small bowel series. No strictures or masses are present. Terminal ileum is normal. Contrast is seen in the right colon at 90 minutes. 4. A moderate amount of barium remains in the stomach after 90 minutes. This may represent underlying gastroparesis. Consider correlating with gastric emptying study. This procedure was performed by German Veras PA-C, and supervised by Dr. Borges
== END 2023-11-05 07:59 | disposition home or self-care (01) ==
LOC: HO.XRAY 07:58
PROVIDERS: PCP Family Medicine; Visit Provider Physician Assistant
DX: R10.9 Unspecified abdominal pain (principal); D68.01 Von Willebrand disease, type 1
CPT/HCPCS: 74246; 74248

== ENCOUNTER → 2023-11-05 08:00 | Outpatient (BNV) | payer OTHER, SELFPAY | PROVIDERS: PCP Family Medicine; Visit Provider Physician Assistant Surgical | DX: R13.10 Dysphagia, unspecified (principal) | CPT/HCPCS: 74246 ==

== ENCOUNTER 2025-02-02 10:44 | Outpatient (AMB) | payer OTHER, SELFPAY ==
--- NOTE | 2025-02-02 10:47 | A.OFFPC_ITS ---
Vital Signs 02/02/25 10:55 Height 5 ft 5 in Weight 127 lb 2 oz BMI 21.2 BP 120/60 Blood Pressure Location Lt brachial Position Sitting Respiration 16 Pulse 62 Pulse Source Pulse Oximeter Temp 98.0 F Temp Source Oral Pulse Oximetry (%) 100 Oxygen Delivery Method Room Air Intake Visit Reasons: follow-up anxiety /depression & Health concerns Intake Note: patient here for follow up on anxiety,depression and health concerns Change Management Lead Required: No Is last menstrual period known: No Post menopausal: No Patient : No Allergies No Known Allergies Allergy (Verified 02/02/25 10:51) Tobacco use date assessed: 02/02/25 Dental Screening Dental Screen Date: 02/02/25 Did you have a dental visit in the last 12 months?: No Did you have a dental problem in the last 6 months where you did not have access to dental care?: No Was dental information given to patient?: Patient has dentist HPI follow-up anxiety /depression & Health concerns HPI Details 39 y/o female presents to f/u anxiety/de pression. PHQ-9 16, FRED-7 11 today. She is on escitalopram 20mg. Denies any SI/HI today. She states she feels she is okay. Reports some chest pain. She notes she sometimes experiences it while exerting herself but not always. Prior EKG was normal. No history of cardiac disease. She has been seen by GI in the past. HPI Comments History of Present Illness Details Documentation assistance for Akin Hernandez MD, was provided by Thierno Mitchell,? Glove Examiner on 02/02/2025 at 11:48 AM EST. I, Dr. Hernandez, have read, observed, and verified documentation. ?? PFSH Medical History Psoriasis Family history of psoriasis in brother Mohs defect Anxiety Depression Surgical History H/O: hysterectomy S/P tonsillectomy Family History Mother Asthma High blood pressure High cholesterol Diabetes Cardiovascular disease Clotting disorder Thyroid disorder Alcoholism Psychiatric disorder Rheumatoid arthritis Osteoarthritis Substance abuse Mental health disorder Father Asthma Alcoholism Maternal Grandmother Asthma Breast cancer Paternal Grandmother Asthma Brother Asthma Substance abuse Mental health disorder Sister Substance abuse Mental health disorder Other Psoriatic arthritis Social History Household Members: Family Household Members Other:: , - 2 older kids Housing: House Are you a primary healthcare management consultant to a significant other at home: No Do you presently have visiting nurse or other home services: No 75 years or older and lives alone: No Alcohol intake: current Alcohol intake frequency: holidays/special occasions only Patient Tobacco Use Status: Never used Tobacco e-Cigarette/Vaping Use: Never Used Second Hand Smoke Exposure: No Special abdelrahman needs: No service: No Current occupational status: disabled Current occupational exposures/hazards: No Cognitive needs: No Hearing needs: No Vision needs: Yes (wears prescription glasses.) Questionnaire PHQ-9 Over the last 2 weeks, how often have you been bothered by any of the following problems? 1. Little interest or pleasure in doing things: several days 2. Feeling down, depressed, or hopeless: more than half the days 3. Trouble falling or staying asleep, or sleeping too much: nearly every day 4. Feeling tired or having little energy: nearly every day 5. Poor appetite or overeating: more than half the days 6. Feeling bad about yourself - or that you are a failure or have let yourself or your family down: more than half the days 7. Trouble concentrating on things, such as reading the newspaper or watching television: more than half the days 8. Moving or speaking so slowly that other people could have noticed. Or the opposite - being so fidgety or restless that you have been moving around a lot more than usual: not at all 9. Thoughts that you would be better off or of hurting yourself in some way: several days Total score: 16 Depression Screening Interpretation: Positive Depression Screening Follow-up: In treatment, New Medication prescribed and Community Mental Health Worker F/U Depression Screening Done: Yes 95078 - PHQ-9 Billing: Yes Source: Developed by Drs. Frederick Main, Tatiana Navas, Charan Shanks and colleagues, with an educational hafsa from [employer]. Thrive Questionnaire Date Thrive assessed: 07/16/23 FRED-7 AMB Questionnaire FRED-7 Date FRED - 7 assessed: 02/02/25 Feeling nervous, anxious, or on edge: 2 = More than half the days Not being able to stop or control worryin = More than half the days Worrying too much about different things: 2 = More than half the days Trouble relaxin = More than half the days Being so restless that it is hard to sit still: 1 = Several days Becoming easily annoyed or irritable: 1 = Several days Feeling afraid as if something awful might happen: 1 = Several days Total FRED-7 score (0-4 normal; 5-9 mild; 10-14 moderate; 15-21 severe): 11 Source: Developed by Drs. Frederick Main, Tatiana Navas, Charan Shanks and colleagues, with an educational hafsa from [employer]. FRED-7 Assessment Billing FRED-7 Assessment Tool: FRED-7 Assessment 58802 Review of Systems Const Denies chills, Denies fatigue, Denies fever(s), Denies headache(s) and Denies weakness ENT Denies dizziness and Denies headache(s) Card Denies dyspnea Resp Denies cough, Denies dyspnea, Denies wheezing and Denies other (shortness of breath) Musc Denies numbness and Denies tingling Neuro Denies dizziness, Denies headache(s), Denies numbness, Denies tingling and Denies weakness Psych Reports anxiety and Reports depression Endo Denies fatigue Aller/Immun Denies wheezing Physical exam (Primary Care) Vital Signs: Last Vital Signs Temp 98.0 F 02/02/25 10:55 Pulse 62 02/02/25 10:55 Resp 16 02/02/25 10:55 BP 120/60 02/02/25 10:55 Pulse Ox 100 02/02/25 10:55 Oxygen Delivery Method Room Air 02/02/25 10:55 BMI result Body Mass Index 21.2 Tobacco/Smoking Status: Tobacco use Status Tobacco use date assessed 02/02/25 02/02/25 10:53 Patient Tobacco Use Status Never used Tobacco 02/02/25 10:49 e-Cigarette/Vaping Use Never Used 02/02/25 10:49 PHQ-9: PHQ-9 Score PHQ-9: Total score 16 02/02/25 11:00 Depression Screening Interpretation: Positive Depression Screening Follow-up: In treatment, New Medication prescribed and Community Mental Health Worker F/U Thrive Assessment: Date of Thrive Assessment Date Thrive assessed 07/16/23 02/02/25 10:49 Const General: well developed; No acute distress Nutritional Appearance: well nourished Orientation/consciousness: patient oriented x3 HENMT Head: Yes normocephalic and Yes atraumatic Eyes General: appearance normal, both eyes and all related structures Pupils: Equal, round and reactive pupils present EOM: EOMs intact bilaterally Resp Effort & Inspection: normal respiratory effort Auscultation: clear to auscultation bilaterally Cardio Rate: regular rate Rhythm: regular rhythm Heart sounds: S1 normal heart sound present, S2 normal heart sound present, no gallops, no murmurs and no rubs Neuro General: patient oriented x3 and gait normal Cranial nerves: Yes Equal, round and reactive pupils present Psych Affect: normal affect Coding Level of Care Code Est Pt Level 4 (74886) Diagnoses Anxiety and depression F41.9; F32.A Chest pain R07.9 Additional Codes FRED-7 Assessment Billing - FRED-7 Assessment Tool: FRED-7 Assessment 17679 ([id number]) PHQ-9 - 13022 - PHQ-9 Billing: Yes ([id number]) Assessment & Plan Assessment & Plan (1) Anxiety and depression: Code(s): F41.9 - Anxiety disorder, unspecified; F32.A - Depression, unspecified Category: Medical Plan: Ongoing depression and anxiety. Patient has intermittent SI without any plan. Contracts for safety She remains on escitalopram. Had tried Abilify in the past. Will trial mirtazapine. Patient had a psychiatrist and therapist in the past and she notes that this was never really stable Needs a regular therapist and would benefit from Psychiatry as well. Will ask the nurse navigator to help connect her with a new therapist. Will refer her to [facility] psychiatric consult to help with a medication management that helps stabilize her further. (2) Chest pain: Code(s): R07.9 - Chest pain, unspecified Category: Medical Plan: Patient has epigastric pain which radiates upward to her lower chest region. Mostly when she is at rest or lying down. Prior EKG was normal. No history of cardiac disease. She has been seen by GI in the past. This appears some lower esophageal reflux and possible esophageal spasm. Will refer her back to GI as she was lost to follow-up Will give her famotidine Orders: Orders Comprehensive [place]. Panel Fast Today Z00.00 - Encounter for general adult medical examination without abnormal findings UA CC w/rflx Micro + Cult Today Z00.00 - Encounter for general adult medical examination without abnormal findings Vitamin B12 and Folate Today E53.8 - Deficiency of other specified B group vitamins Complete Blood Count Auto Diff Today Z00.00 - Encounter for general adult medical examination without abnormal findings Lipid Panel Today Z00.00 - Encounter for general adult medical examination without abnormal findings Microalbumin, Random (w Creat) Today I10 - Essential (primary) hypertension TSH reflex Free T4 Today Z00.00 - Encounter for general adult medical examination without abnormal findings Vitamin D 25-OH Total Today E55.9 - Vitamin D deficiency, unspecified Referrals Psychiatry Outpatient Consultation Service F32.A - Depression, unspecified, F41.9 - Anxiety disorder, unspecified Gastroenterology Referral R10.13 - Epigastric pain Medications: New mirtazapine 7.5 mg PO BEDTIME 30 tabs 1RF 30 days famotidine 20 mg PO BID 60 tabs 2RF 30 days
[2025-02-02 10:55] VITALS: BP 120/60; PULSE 62; RESP 16; TEMP 36.7; O2SAT 100; BMI 21.2
== END 2025-02-02 11:42 | disposition home or self-care (01) ==
LOC: HO.HMCFM 10:44
PROVIDERS: PCP Family Medicine; Visit Provider Family Medicine
DX: F41.9 Anxiety disorder, unspecified (principal); F32.A Depression, unspecified; R07.9 Chest pain, unspecified

== ENCOUNTER → 2025-02-02 10:44 | Outpatient (BNVA) | payer OTHER, SELFPAY | PROVIDERS: PCP Family Medicine; Visit Provider Family Medicine | DX: I10 Essential (primary) hypertension (principal); F41.9 Anxiety disorder, unspecified; F32.A Depression, unspecified; R10.13 Epigastric pain; R07.9 Chest pain, unspecified; E55.9 Vitamin D deficiency, unspecified | CPT/HCPCS: 96127; 99212 ==

== ENCOUNTER 2025-03-04 12:01 | Outpatient (REF) | payer OTHER, SELFPAY ==
[2025-03-04 14:27] LABS: Appearance Urine Clear; Glucose Urine UA Negative (Negative); PH 7.0 (5.0-9.0); Specific Gravity - Urine 1.020 (1.005-1.025)
[2025-03-04 14:42] LABS: MANUAL DIFF FLAG NO
[2025-03-04 14:49] LABS: Hematocrit 43.1 % (37.0-47.0); Hemoglobin 14.3 g/dl (12.0-16.0); Imm Gran Abs Auto 0.02 X10*3/uL (0.00-0.03); Imm Gran Pct Auto 0.3 % (0.0-0.4); Lymphocytes Absolute Auto 1.8 X10*3/uL (1.2-4.9); Mean Corpuscular HGB Conc 33.2 g/dl (31.0-35.0); Mean Corpuscular Hemoglobin 30.0 pg (27.0-33.0); Mean Corpuscular Volume 90.5 fL (80.0-98.0); NRBC Abs Auto 0.000 X10*3/uL (0.0-0.012); NRBC Pct Auto 0.0 /100WBC (0.0-0.2); Platelet Count 234 X10*3/uL (160-400); Red Blood Count 4.76 X10*6/uL (4.20-5.50); White Blood Count 6.9 X10*3/uL (4.8-10.8)
[2025-03-04 15:28] LABS: Alanine Aminotransferase 16 U/L (0-31); Albumin Level 4.7 g/dL (3.5-5.0); Alkaline Phosphatase 59 U/L (39-117); Anion Gap 11 (12-20); Aspartate Amino Transferase 23 U/L (5-31); Blood Urea Nitrogen 18 mg/dL (9-16); Calcium 9.2 mg/dL (8.4-10.2); Carbon Dioxide 29 mmol/L (22-29); Chloride 105 mmol/L (96-108); Cholesterol 245 mg/dL (<200); Estimated Glomerular Filt Rate > 60; HDL Cholesterol 45 mg/dL (>40); Potassium 4.2 mmol/L (3.3-5.1); Sodium 141 mmol/L (135-145); Total Protein 7.7 g/dL (6.5-8.0); Triglycerides 120 mg/dL (<150)
[2025-03-04 15:47] LABS: Folate 10.4 ng/mL (> or = 4.0); Vitamin B12 476 pg/mL (200-900)
== END 2025-03-04 12:02 | disposition home or self-care (01) ==
LOC: HO.WFDLDS 12:01
PROVIDERS: Visit Provider Family Medicine
DX: Z00.00 Encounter for general adult medical examination without abnormal findings (principal); E53.8 Deficiency of other specified B group vitamins; I10 Essential (primary) hypertension; E55.9 Vitamin D deficiency, unspecified
CPT/HCPCS: 36415; 80053; 80061; 81003; 82043; 82306; 82570; 82607; 82746; 84443; 85025

== ENCOUNTER 2025-03-18 09:49 | Outpatient (AMB) | payer OTHER, SELFPAY ==
--- NOTE | 2025-03-18 10:04 | A.OFFPC_ITS ---
Vital Signs 03/18/25 10:07 Height 5 ft 5 in Weight 130 lb BMI 21.6 BP 120/70 Blood Pressure Location Lt brachial Position Sitting Respiration 16 Pulse 75 Pulse Source Pulse Oximeter Temp 97.9 F Temp Source Oral Pulse Oximetry (%) 98 Oxygen Delivery Method Room Air Intake Visit Reasons: f/u anxiety/depression Intake Note: patient is scheduled for anxiety and depression follow up. Hot Dip Plater Required: No Allergies No Known Allergies Allergy (Verified 03/18/25 10:06) Medication List - Last Reconciled 03/18/25 by Akin Hernandez MD albuterol sulfate 90 mcg/actuation 2 puffs inhalation Q4-6H PRN 30 days cholecalciferol (vitamin D3) 1,250 mcg PO QWEEK 28 days escitalopram oxalate 20 mg PO DAILY 90 days famotidine 20 mg PO BID 30 days fluticasone propionate 110 mcg/actuation (Flovent HFA) 1 puff inhalation Q12H 30 days mirtazapine 7.5 mg PO BEDTIME 30 days Tobacco use date assessed: 02/02/25 Dental Screening Dental Screen Date: 02/02/25 HPI f/u anxiety/depression HPI Details 39 y/o female presents to f/u anxiety/de pression. Labs drawn 03/04/25. Reviewed labs with pt. Triglycerides 120. TC 245. LDL 176. HDL 45. Pt notes she feels she eats a healthy diet. Vitamin D 60.1. PHQ-9 16, FRED-7 11 today. Has an upcoming appt. with outpatient pscyhiatric consult team. Denies any imminent plans. Reports RUQ abd. pain. Also reports nasal congestion/sinus congestion and pain/pressure in maxillary sinuses. [facility] Medical History Psoriasis Family history of psoriasis in brother Mohs defect Anxiety Depression Surgical History H/O: hysterectomy S/P tonsillectomy Family History Mother Asthma High blood pressure High cholesterol Diabetes Cardiovascular disease Clotting disorder Thyroid disorder Alcoholism Psychiatric disorder Rheumatoid arthritis Osteoarthritis Substance abuse Mental health disorder Father Asthma Alcoholism Maternal Grandmother Asthma Breast cancer Paternal Grandmother Asthma Brother Asthma Substance abuse Mental health disorder Sister Substance abuse Mental health disorder Other Psoriatic arthritis Social History Household Members: Family Household Members Other:: , - 2 older kids Housing: House Are you a primary hospice care consultant to a significant other at home: No Do you presently have visiting nurse or other home services: No 75 years or older and lives alone: No Alcohol intake: current Alcohol intake frequency: holidays/special occasions only Patient Tobacco Use Status: Never used Tobacco e-Cigarette/Vaping Use: Never Used Second Hand Smoke Exposure: No Special abdelrahman needs: No service: No Current occupational status: disabled Current occupational exposures/hazards: No Cognitive needs: No Hearing needs: No Vision needs: Yes (wears prescription glasses.) Questionnaire PHQ-9 Over the last 2 weeks, how often have you been bothered by any of the following problems? 1. Little interest or pleasure in doing things: more than half the days 2. Feeling down, depressed, or hopeless: more than half the days 3. Trouble falling or staying asleep, or sleeping too much: more than half the days 4. Feeling tired or having little energy: more than half the days 5. Poor appetite or overeating: several days 6. Feeling bad about yourself - or that you are a failure or have let yourself or your family down: several days 7. Trouble concentrating on things, such as reading the newspaper or watching television: more than half the days 8. Moving or speaking so slowly that other people could have noticed. Or the opposite - being so fidgety or restless that you have been moving around a lot more than usual: more than half the days 9. Thoughts that you would be better off or of hurting yourself in some way: more than half the days Total score: 16 Depression Screening Interpretation: Positive Depression Screening Done: Yes 64736 - PHQ-9 Billing: Yes Source: Developed by Drs. Frederick Main, Tatiana Navas, Charan Shanks and colleagues, with an educational hafsa from [employer]. Thrive Questionnaire Date Thrive assessed: 03/11/25 I am a: Patient What is your living situation today?: I have a steady place to live Within the past 12 months, did the food you bought not last and you didn't have the money to get more?: I choose not to answer this question Within the past 12 months, did you worry whether your food would run out before you got money to buy more?: I choose not to answer this question Do you have trouble paying for medicines?: No Do you have trouble getting transportation to medical appointments?: No Do you have trouble paying your heating and electricity bill?: No Do you have trouble taking care of your child, family member or friend?: No Do you have trouble with day-to-day activities such as bathing, preparing meals, shopping, managing finances, etc.?: Yes Are you currently unemployed and looking for a job?: No Are you interested in more education?: No Please select the resources that you would like help with: None Currently or been in a relationship where the following occur: I choose not to answer THRIVE Score: 0 AUDIT C Alcohol Use Questionnaire (AUDIT-C) 1. How often do you have a drink containing alcohol?: Never 2. How many drinks containing alcohol do you have on a typical day when you are drinking?: 1 or 2 3. How often do you have six or more drinks on one occasion?: Never Total Score: 0 FRED-7 AMB Questionnaire FRED-7 Date FRED - 7 assessed: 03/18/25 Feeling nervous, anxious, or on edge: 1 = Several days Not being able to stop or control worryin = Several days Worrying too much about different things: 1 = Several days Trouble relaxin = Nearly every day Being so restless that it is hard to sit still: 3 = Nearly every day Becoming easily annoyed or irritable: 1 = Several days Feeling afraid as if something awful might happen: 1 = Several days Total FRED-7 score (0-4 normal; 5-9 mild; 10-14 moderate; 15-21 severe): 11 Source: Developed by Drs. Frederick Main, Taitana Navas, Charan Shanks and colleagues, with an educational hafsa from [employer]. Review of Systems Const Denies chills, Denies fatigue, Denies fever(s), Denies headache(s) and Denies weakness ENT Denies dizziness and Denies headache(s) Card Denies dyspnea Resp Denies cough, Denies dyspnea, Denies wheezing and Denies other (shortness of breath) Musc Denies numbness and Denies tingling Neuro Denies dizziness, Denies headache(s), Denies numbness, Denies tingling and Denies weakness Psych Reports anxiety and Reports depression Endo Denies fatigue Aller/Immun Denies wheezing Physical exam (Primary Care) Vital Signs: Last Vital Signs Temp 97.9 F 03/18/25 10:07 Pulse 75 03/18/25 10:07 Resp 16 03/18/25 10:07 BP 120/70 03/18/25 10:07 Pulse Ox 98 03/18/25 10:07 Oxygen Delivery Method Room Air 03/18/25 10:07 BMI result Body Mass Index 21.6 Tobacco/Smoking Status: Tobacco use Status Tobacco use date assessed 02/02/25 03/18/25 10:11 Patient Tobacco Use Status Never used Tobacco 03/18/25 10:11 e-Cigarette/Vaping Use Never Used 03/18/25 10:11 PHQ-9: PHQ-9 Score PHQ-9: Total score 16 03/18/25 10:51 Depression Screening Interpretation: Positive Thrive Assessment: Date of Thrive Assessment Date Thrive assessed 03/11/25 03/18/25 10:11 Currently or been in a relationship where the following occur: I choose not to answer Const General: well developed; No acute distress Nutritional Appearance: well nourished Orientation/consciousness: patient oriented x3 HENMT Head: Yes normocephalic and Yes atraumatic Eyes General: appearance normal, both eyes and all related structures Pupils: Equal, round and reactive pupils present EOM: EOMs intact bilaterally Resp Effort & Inspection: normal respiratory effort Neuro General: patient oriented x3 and gait normal Cranial nerves: Yes Equal, round and reactive pupils present Psych Affect: normal affect Coding Level of Care Code Est Pt Level 4 (26904) Diagnoses Anxiety and depression F41.9; F32.A Hypercholesterolemia E78.00 Abdominal pain R10.9 Viral illness B34.9 Sinusitis J32.9 RUQ pain R10.11 Additional Codes PHQ-9 - 17474 - PHQ-9 Billing: Yes ([id number]) Assessment & Plan Assessment & Plan (1) Anxiety and depression: Code(s): F41.9 - Anxiety disorder, unspecified; F32.A - Depression, unspecified Category: Medical Plan: Patient with anxiety and depression returns for follow-up. Also has numerous physical complaints. She is taking escitalopram as prescribed. Had tried mirtazapine but patient says that she did not like the way she felt on that. He has already discontinued it. She denies any imminent plans for self-harm She has an upcoming appointment with he outpatient psychiatric consult team. Continue escitalopram and follow-up with the psychiatric consult team (2) Hypercholesterolemia: Code(s): E78.00 - Pure hypercholesterolemia, unspecified Category: Medical Plan: LDL cholesterol is too high She did not try Zetia Lipids have increased she has only been working on diet; patient says she does not high cholesterol. She also notes that high cholesterol runs in family Had a discussion regarding cholesterol and medications. Sending a script for atorvastatin 40 mg daily (3) Abdominal pain: Code(s): R10.9 - Unspecified abdominal pain Category: Medical Plan: Patient has right upper quadrant pain which is sharp in quality and intermittent. She is not sure if it is associated with foods or other activities. Has had history of gastritis and GERD and I had sent a script for omeprazole but she said this caused a rash so she stopped it. Does famotidine on her med list and I will send a refill May represent a chronic cholecystitis Checking ultrasound Encouraged her to watch trigger foods (4) Viral illness: Code(s): B34.9 - Viral infection, unspecified Category: Medical Plan: Patient has cough, congestion and significant sinus pain and pressure. Moderate nasal congestion and discharge She has had symptoms about week. Will send a script for a Z-Baldemar for sinusitis Checking nasal strong to rule out COVID/flu/RSV but symptoms have lasted week she is likely contagious at this point (5) Sinusitis: Code(s): J32.9 - Chronic sinusitis, unspecified Category: Medical Plan: As above (6) RUQ pain: Code(s): R10.11 - Right upper quadrant pain Category: Medical Plan: As above Orders: Orders US abdomen complete Today R10.11 - Right upper quadrant pain SARS-CoV2/FLU/RSV Today B34.9 - Viral infection, unspecified Complete Blood Count Auto Diff Today R10.11 - Right upper quadrant pain, Z00.00 - Encounter for general adult medical examination without abnormal findings Comprehensive Met. Panel Today R10.11 - Right upper quadrant pain Medications: New atorvastatin (Lipitor) 40 mg PO BEDTIME 90 tabs 3RF 90 days
[2025-03-18 10:07] VITALS: BP 120/70; PULSE 75; RESP 16; TEMP 36.6; O2SAT 98; BMI 21.6
== END 2025-03-18 11:04 | disposition home or self-care (01) ==
LOC: HO.HMCFM 09:50
PROVIDERS: PCP Family Medicine; Visit Provider Family Medicine
DX: F41.9 Anxiety disorder, unspecified (principal); F32.A Depression, unspecified; E78.00 Pure hypercholesterolemia, unspecified; R10.9 Unspecified abdominal pain; B34.9 Viral infection, unspecified; J32.9 Chronic sinusitis, unspecified; R10.11 Right upper quadrant pain

== ENCOUNTER 2025-03-18 09:49 | Outpatient (REF) | payer OTHER, SELFPAY ==
[2025-03-18 15:10] LABS: Resp Syncy Virus RNA Qual PCR NEGATIVE (Negative); SARS COV2 PCR INHOUSE NEGATIVE (Negative)
== END 2025-03-18 09:50 | disposition home or self-care (01) ==
LOC: HO.LNP 09:49
PROVIDERS: PCP Family Medicine; Visit Provider Family Medicine
DX: R10.13 Epigastric pain (principal); B34.9 Viral infection, unspecified; R19.5 Other fecal abnormalities; Z79.899 Other long term (current) drug therapy
CPT/HCPCS: 87637; 96127; 99212

== ENCOUNTER 2025-03-18 14:25 | Outpatient (AMB) | payer OTHER, SELFPAY ==
--- NOTE | 2025-03-18 14:28 | A.OFFVIS_ITS ---
Vital Signs 03/18/25 14:29 Height 5 ft 5 in Weight 130 lb BMI 21.6 BP 120/62 Blood Pressure Location Lt brachial Position Sitting Pulse 70 Pulse Source Pulse Oximeter Pulse Oximetry (%) 99 Oxygen Delivery Method Room Air Intake Visit Reasons: epigastric pain Intake Note: Patient complex follow up for epigastric pain/Cheryl crowley was 05/07/2023 Patient cc: C.O. nausea, epigastric pain, and BM inconsistencies. Pt also reports that she had imaging done in 2023 per JM that she never got the opportunity to review. No colon cancer in the family; however, she does report that her brother has had multiple polyps removed from his colon. Building Appraiser Required: No Accompanied by: Self / Same As Patient Allergies No Known Allergies Allergy (Verified 03/18/25 14:29) Medication List - Last Reconciled 03/18/25 by Elodia Alfaro CNP albuterol sulfate 90 mcg/actuation 2 puffs inhalation Q4-6H PRN 30 days atorvastatin (Lipitor) 40 mg PO BEDTIME 90 days cholecalciferol (vitamin D3) 1,250 mcg PO QWEEK 28 days escitalopram oxalate 20 mg PO DAILY 90 days famotidine 20 mg PO BID 30 days fluticasone propionate 110 mcg/actuation (Flovent HFA) 1 puff inhalation Q12H 30 days ibuprofen 600 mg PO Q6H PRN HPI HPI epigastric pain: Details: Patient is a 39-year-old female with PMH of anxiety, depression, psoriasis. Referred by PCP for further evaluation of epigastric pain. Previously established with LEONARD Trejo with last visit 05/07/2023 for abdominal pain. Nu presents with chronic, fluctuating abdominal pain that has persisted since childhood, now described as both epigastric and lower abdominal discomfort, sometimes reaching intense severity. The pain is often accompanied by alternating bowel patterns?periods of constipation interspersed with episodes of frequent, loose, sometimes bile-stained stools, occasionally with blood noted on wiping. She reports early satiety, becoming full quickly with meals, and frequent nausea; vomiting is rare but can occur with severe epigastric pain. The pain tends to worsen postprandially and may improve after bowel movements. Heartburn and dysphagia occur infrequently. Appetite is diminished. There is no reported weight loss; weight has been stable in the 130s (previous baseline 115 lbs ~3 years ago). Occasional use of NSAIDs (ibuprofen 400?600 mg/month Notably, she has a history of subjective ankylosing spondylitis and psoriatic arthritis, with remote skin cancers (details uncertain, previously removed). Family history notable for undiagnosed stomach issues, but no known GI malignancies. Current medication adherence is inconsistent; she occasionally uses an albuterol inhaler, Lipitor, vitamin D, and citalopram, but has recently discontinued mirtazapine. Patient denies: fever/chills, appetite changes, regurgitation, unintentional wt loss. Social hx: -denies ETOH use -denies recreational drug use -non-smoker - family hx as below -denies significant cardiopulmonary history -tolerated anesthesia in the past without difficulty. Recommendations for gastric emptying study. [facility] Medical History Psoriasis Family history of psoriasis in brother Mohs defect Anxiety Depression Surgical History H/O: hysterectomy S/P tonsillectomy Family History Mother Asthma High blood pressure High cholesterol Diabetes Cardiovascular disease Clotting disorder Thyroid disorder Alcoholism Psychiatric disorder Rheumatoid arthritis Osteoarthritis Substance abuse Mental health disorder Father Asthma Alcoholism Lung cancer Maternal Grandmother Asthma Breast cancer Paternal Grandmother Asthma Brother Asthma Substance abuse Mental health disorder Colon polyps Sister Substance abuse Mental health disorder Maternal Aunt Cervical cancer Other Psoriatic arthritis Social History Household Members: Family Household Members Other:: , - 2 older kids Housing: House Are you a primary career and transition teacher to a significant other at home: No Do you presently have visiting nurse or other home services: No 75 years or older and lives alone: No Alcohol intake: current Alcohol intake frequency: holidays/special occasions only Patient Tobacco Use Status: Never used Tobacco e-Cigarette/Vaping Use: Never Used Second Hand Smoke Exposure: No Special abdelrahman needs: No service: No Current occupational status: disabled Current occupational exposures/hazards: No Cognitive needs: No Hearing needs: No Vision needs: Yes (wears prescription glasses.) Review of Systems Const Reports as per HPI ENT Reports as per HPI Card Reports as per HPI Resp Reports as per HPI GI Reports as per HPI Reports as per HPI Physical Exam Vital Signs: Last Vital Signs Pulse 70 03/18/25 14:29 BP 120/62 03/18/25 14:29 Pulse Ox 99 03/18/25 14:29 Oxygen Delivery Method Room Air 03/18/25 14:29 BMI result Body Mass Index 21.6 Const General: healthy appearing, no acute distress and well developed Nutritional Appearance: average body habitus Orientation/consciousness: patient oriented x3 HEENT Head: Yes normal to inspection, Yes normocephalic and Yes atraumatic Face and sinus: Yes normal facial exam Eyes General: appearance normal, both eyes and all related structures Neck Neck: Yes normal visual inspection Resp Effort & Inspection: normal respiratory effort, able to speak in complete sentences, no tracheal deviation and symmetric chest movement Cardio Jugular venous distension: no JVD GI Inspection: Yes normal to inspection and No distended Palpation (GI): Soft to palpation, not firm, nontender and No hepatosplenomegaly present Auscultation: normal bowel sounds Rectal Exam - Female: deferred Neuro General: patient oriented x3 Gait exam (Neuro): Normal gait present Psych Appearance: grossly normal Mental Status: mental status grossly normal Speech and movement: Normal speech and movement present Affect: normal affect Attitude: cooperative Thought process: Normal thought process present Thought content: Normal thought content present Insight: Good insight present (Psych) Judgement: Good judgement present (Psych) Results Reviewed Results Reviewed: Date of Service: 11/05/23 Procedure(s): FL upper GI w air w SBFT Accession Number(s): [id number] cc: Akin Hernandez MD; Cheryl Riley PA-C~ EXAMINATION: XR FLUOROSCOPY UPPER GI WITH SMALL BOWEL SERIES CLINICAL INFORMATION: Abdominal pain. Dysphagia COMPARISON: None TECHNIQUE: Fluoroscopic air contrast upper GI examination was performed utilizing standard techniques with thin and thick barium and effervescent granules. Numerous spot images were obtained. This was followed by small bowel series using standard technique with numerous overhead radiographs during propagation of contrast through the small bowel into the ascending colon/ileal cecal valve. Spot images were obtained of any abnormal appearing small bowel. FINDINGS: UPPER GI: Lateral cine images of the oropharynx and hypopharynx demonstrate normal swallow mechanism with normal epiglottic inversion and soft palate elevation. No tracheal penetration, glottic or subglottic aspiration identified. No nasopharyngeal reflux present. A small pharyngeal pouch is present. There was no significant cricopharyngeal achalasia. Dual and single contrast images of the esophagus demonstrate normal caliber, contour, and mucosal pattern. No evidence of stricture, mass, or ulcerations identified. Esophageal peristalsis was normal. No evidence of hiatus hernia identified. No significant gastroesophageal reflux was seen during the course of the examination and on reflux views. Dual contrast and single contrast images of the stomach demonstrated a normal contour. Evaluation of the gastric mucosa is limited due to lack of distention from poor tolerance of the effervescent granules. The gastric mucosal folds have a thickened appearance, which suggests gastritis, however, this may be also due to underdistention of the stomach. No obvious masses or ulcerations are seen. And Contrast freely passed into the gastric antrum and duodenal bulb without delay. Single and air-contrast images of the duodenal bulb demonstrate no abnormality. The duodenal sweep has a normal appearance, course, and mucosal fold appearance. No malrotation. SMALL BOWEL FOLLOW-THROUGH: Explosive Ordnance Manager view demonstrates a trace inferior thoracic dextroconvex scoliosis. Moderate retained stool present. No abnormal soft tissue calcifications. Lung bases are clear. Heart size is normal. No organomegaly. Bony structures appear normal. SI joints and hip joints appear normal. The imaged small bowel has a normal fold pattern and caliber. No strictures, or masses are present. The terminal ileum is well visualized and normal in appearance. Contrast is seen in the right colon at 90 minutes. At the end of the examination, a moderate amount of barium remains in the stomach, suggestive of hypomotility. FLUOROSCOPY TIME: 3 minutes 25 seconds Number of Spot Images: 14 Number of Cine: 11 DOSE AREA PRODUCT: 1417 uGy-m2 (microgray-meter squared) FL/FL upper GI w air w SBFT IMPRESSION: 1. Tiny lateral pharyngeal pouch. 2. Limited evaluation of the gastric mucosa due to lack of distention of the stomach from poor tolerance of the effervescent granules. The gastric rugal folds have a thickened appearance, which suggests gastritis. 3. Unremarkable small bowel series. No strictures or masses are present. Terminal ileum is normal. Contrast is seen in the right colon at 90 minutes. 4. A moderate amount of barium remains in the stomach after 90 minutes. This may represent underlying gastroparesis. Consider correlating with gastric emptying study. Assessment & Plan Assessment & Plan (1) Change in consistency of stool: Code(s): R19.5 - Other fecal abnormalities Category: Medical Plan: Multi-year history of upper and lower abdominal pain, postprandial worsening, variable bowel patterns, occasional blood, associated subjective autoimmune history; minimal lab/imaging completed. DDX: Inflammatory bowel disease (UC vs. Crohn?s), Irritable bowel syndrome, Gastroparesis, Peptic ulcer disease (including H. pylori gastritis), Celiac disease, Gallbladder disease, Less likely: infectious causes, malignancy (no worrisome features or significant weight loss reported.) Additional Testing: - Bloodwork: CBC, inflammatory markers (repeat CRP), celiac serologies - Stool studies: Fecal calprotectin, stool occult blood, GI pathogen panel, H. pylori antigen - Gastric emptying study (to assess for gastroparesis; prior barium study showed delayed gastric clearance) - Awaiting abdominal US (ordered by referring provider) Medication Management: - No new Rx pending further data per pt preference; continue PRN ibuprofen only as needed (minimize use) - Continue current maintenance meds as needed (atorvastatin, inhalers, vitamin D, citalopram intermittently) - If upper GI symptoms worsen, consider trial of PPI (e.g., omeprazole) if/when indicated Lifestyle Recommendations: - Maintain regular meals with adequate fiber and hydration; consider small, frequent meals to limit early satiety - Prefer whole foods when tolerated; trial of homemade smoothies to boost nutrition/calories if early fullness persists - Avoid known triggers; continue to limit NSAIDs Follow-Up: - F/U GI clinic in 6 weeks or earlier if concerning findings on labs/imaging; provider will contact via portal for abnormal results or expedited issues (2) Epigastric pain: Code(s): R10.13 - Epigastric pain Category: Medical Plan: As above Plan Follow-up in 6 weeks or sooner as needed Time: I spent a total of 43 minutes on the date of encounter which includes: Preparing to see the patient (reviewed previous documentation, test results and medical history) Performing a medically appropriate exam and/or evaluation Ordering medications, tests, and procedures Documenting clinical information in the health record Orders: Orders Calprotectin, Fecal Today R19.5 - Other fecal abnormalities C Reactive Protein Today R19.5 - Other fecal abnormalities H pylori Ag Stool Today R19.5 - Other fecal abnormalities Ova and Parasite Today R19.5 - Other fecal abnormalities AMB Fecal Immunochemical Test Today Z12.11 - Encounter for screening for malignant neoplasm of colon Transglutaminase IgA Today R19.5 - Other fecal abnormalities NM gastric emptying study Today R10.13 - Epigastric pain Fecal Fat Qualitative Today R19.5 - Other fecal abnormalities Coding Level of Care Code Established Pt Est Pt Level 3 (40571) Patient Type Established Diagnoses Change in consistency of stool R19.5 Epigastric pain R10.13
[2025-03-18 14:29] VITALS: BP 120/62; PULSE 70; O2SAT 99; BMI 21.6
== END 2025-03-18 15:22 | disposition home or self-care (01) ==
LOC: HO.HGI 14:26
PROVIDERS: PCP Family Medicine; Visit Provider Nurse Practitioner Family
DX: R19.5 Other fecal abnormalities (principal); R10.13 Epigastric pain
CPT/HCPCS: 99213

== ENCOUNTER 2025-03-21 14:11 | Outpatient (REF) | payer OTHER, SELFPAY | END 2025-03-21 14:12 | disposition home or self-care (01) | LOC: HO.LNP 14:11 | PROVIDERS: Visit Provider Nurse Practitioner Family | DX: Z13.89 Encounter for screening for other disorder (principal) ==

== ENCOUNTER 2025-03-24 11:17 | Outpatient (REF) | payer OTHER, SELFPAY ==
[2025-03-24 14:23] LABS: FIT Int Ctl YES; FIT Lot M01342; FIT1 NEGATIVE (NEGATIVE); FIT2 NEGATIVE (NEGATIVE)
== END 2025-03-24 11:18 | disposition home or self-care (01) ==
LOC: HO.LAB 11:17
PROVIDERS: PCP Family Medicine; Visit Provider Nurse Practitioner Family
DX: G47.00 Insomnia, unspecified (principal); G89.29 Other chronic pain; R51.9 Headache, unspecified; R41.3 Other amnesia; R19.5 Other fecal abnormalities
CPT/HCPCS: 36415; 82274; 86140; 86364

== ENCOUNTER 2025-03-24 12:56 | Outpatient (AMB) | payer OTHER, SELFPAY ==
--- NOTE | 2025-03-24 13:01 | A.OFFPSYCH_ITS ---
Intake Intake Visit Reasons: consultation Customer Loyalty Representative Required: No Allergies No Known Allergies Allergy (Verified 03/18/25 14:29) Medication List - Last Reconciled 03/24/25 by Barbara Amaya APRN albuterol sulfate 90 mcg/actuation 2 puffs inhalation Q4-6H PRN 30 days atorvastatin (Lipitor) 40 mg PO BEDTIME 90 days cholecalciferol (vitamin D3) 1,250 mcg PO QWEEK 28 days escitalopram oxalate 20 mg PO DAILY 90 days famotidine 20 mg PO BID 30 days fluticasone propionate 110 mcg/actuation (Flovent HFA) 1 puff inhalation Q12H 30 days ibuprofen 600 mg PO Q6H PRN HPI- Psychiatric Chief Complaint: consultation HPI Narrative: Pt referred by her PCP for evaluation of depression and anxiety. Pt is currently prescribed escitalopram 20mg and reported ongoing sx of depression and anxiety. Elevated PHQ-9= 24 and FRED-7= 16. Pt previously saw an outpatient therapist and psychiatrist, but is not currently receiving services. Pt is being referred for outpatient supports, but is in need of an evaluation for medication optimization. Pt reports very depressed mood, low energy, anhedonia, poor sleep, low appetite, sleep terrors, waking in middle of the night with panic attacks, restless, sad, hears random people talking even when noone around, sees shadows. She reports obsessively cleaning and describes herself as germaphobe. She reports she can't go out in public wihtout someone with her. she washes her hands 10-15 times an hour, she is checking things constantly. she ananlyzes things over and over going over the smallest details and what ifs. Past Psychiatric History: anxiety and depression since age 4. she reports a traumatic upbringing. No IPLOC. Age 9 tried to hang herslef but sister walked in. Past med trials: celexa-stopped working latuda- she thoughts helped Subjective Subjective Medication Compliance: Yes Side effects from medications: No Review of Systems Medical Review of Systems: unchanged Mental Status Exam Mental Status Exam Patient Appearance: Appropriate Patient Orientation: Person, Place and Time Level of Consciousness: Awake, Appropriate and Alert Patient Behavior: Appropriate, Cooperative and Anxious Mood Description: Depressed, Anxious, Flat, Sad and Nervous Affect Description: Depressed, Anxious, Flat, Sad and Nervous Patient Cognition Impaired: No Ability to Follow Directions: Good Speech Pattern: Clear and Soft-Spoken Memory Description: Intact Hallucinations: Visual Delusions: Not Present Thought Process: Intact and Rumination Thought Content: positive for Intact and positive for Obsessional Thoughts Judgement: Fair Assessment and Plan Assessment & Plan (1) OCD (obsessive compulsive disorder): Status: Acute Qualifiers: Obsessive-compulsive disorder type: mixed obsessional thoughts and acts Qualified Code(s): F42.2 - Mixed obsessional thoughts and acts Code(s): F42.9 - Obsessive-compulsive disorder, unspecified (2) Major depressive disorder, recurrent, severe w/o psychotic behavior: Status: Acute Code(s): F33.2 - Major depressive disorder, recurrent severe without psychotic features (3) Memory changes: Status: Acute Code(s): R41.3 - Other amnesia Plan see orders below return in 2-3 weeks Medications: New lurasidone (Latuda) must administer with food (at least 350 calories) 40 mg PO DAILY 30 tabs 1RF Orders: Orders ECG 12 lead EKG 03/24/25 R07.9 - Chest pain, unspecified Referrals Neurology Referral R41.3 - Other amnesia, R51.9 - Headache, unspecified, G89.29 - Other chronic pain, G47.00 - Insomnia, unspecified Counseling and coordination of Care Pt. Self Management counseling: Maintenance-social rhythm, Med illness tx adherence, Mindfulness, Mod caffeine/ETOH intake, Nutrition education and improvement and General coping skills Medication management counseling: Effectiveness, Side effects, Dosing range, Duration, Drug interaction and Adherence Diagnosis and Prognosis Counseling: Accuracy of diagnosis, Prognosis over time, Impact of diagnosis on life functions, Impact of family relationship, Problematic behaviors secondary to diagnosis and Adequacy of current interventions Details: I spent 70 minutes reviewing the record, seeing the patient and documenting in the medical record. Counseling provided to the patient/caregiver as outlined below. Addressed patient/caregiver concerns regarding current medication regime including effective adherence. Addressed patient/caregiver concerns regarding diagnosis and prognosis including accuracy of diagnosis, prognosis over time, impact of diagnosis. Addressed patient/caregiver concerns regarding impact of recent stressors. [facility] Medical History (Updated 04/19/25 @ 11:31 by Barbara Amaya APRN) Change in consistency of stool Psoriasis Family history of psoriasis in brother Mohs defect Anxiety Depression Surgical History H/O: hysterectomy S/P tonsillectomy Family History Mother Asthma High blood pressure High cholesterol Diabetes Cardiovascular disease Clotting disorder Thyroid disorder Alcoholism Psychiatric disorder Rheumatoid arthritis Osteoarthritis Substance abuse Mental health disorder Father Asthma Alcoholism Lung cancer Maternal Grandmother Asthma Breast cancer Paternal Grandmother Asthma Brother Asthma Substance abuse Mental health disorder Colon polyps Sister Substance abuse Mental health disorder Maternal Aunt Cervical cancer Other Psoriatic arthritis Social History Household Members: Family Household Members Other:: , - 2 older kids Housing: House Are you a primary physician assistant primary care to a significant other at home: No Do you presently have visiting nurse or other home services: No 75 years or older and lives alone: No Alcohol intake: current Alcohol intake frequency: holidays/special occasions only Patient Tobacco Use Status: Never used Tobacco e-Cigarette/Vaping Use: Never Used Second Hand Smoke Exposure: No Special abdelrahman needs: No service: No Current occupational status: disabled Current occupational exposures/hazards: No Cognitive needs: No Hearing needs: No Vision needs: Yes (wears prescription glasses.) Social History: lives with partner and 2 adult children Substance History: none; thc in past. no etoh, no caffeine, no tobacco, no recreational drugs Trauma History: yes childhood Coding Level of Care Code Psych Diag Eval w/Med (17662) Diagnoses Mixed obsessional thoughts and acts F42.2 Obsessive-compulsive disorder type: mixed obsessional thoughts and acts Major depressive disorder, recurrent, severe w/o psychotic behavior F33.2 Memory changes R41.3
== END 2025-03-24 13:53 | disposition home or self-care (01) ==
LOC: HO.HOP 12:56
PROVIDERS: PCP Family Medicine; Visit Provider Clinical Nurse Specialist Psychiatric/Mental Health
DX: F42.2 Mixed obsessional thoughts and acts (principal); F33.2 Major depressive disorder, recurrent severe without psychotic features; R41.3 Other amnesia
CPT/HCPCS: 90792

== ENCOUNTER 2025-03-25 12:42 | Outpatient (REF) | payer OTHER, SELFPAY | END 2025-03-25 12:43 | disposition home or self-care (01) | LOC: HO.LNP 12:42 | PROVIDERS: Visit Provider Nurse Practitioner Family | DX: R19.5 Other fecal abnormalities (principal) | CPT/HCPCS: 82705; 83993; 87177; 87209; 87338 ==

== ENCOUNTER 2025-04-13 08:24 | Outpatient (REF) | payer OTHER, SELFPAY ==
--- NOTE | ~2025-04-13 | US_ITS ---
CLINICAL HISTORY: R10.11 - Right upper quadrant pain US abdomen complete Comparison: None provided Findings: The pancreas is normal. The visualized aorta and inferior vena cava are normal caliber. The liver is normal in size and echogenicity, 6 mm simple cyst in the right hepatic lobe. No intrahepatic bile duct dilatation. The common duct is 5 mm in diameter. The gallbladder is normal. Negative sonographic Walker sign. The main portal vein is patent with antegrade flow. Bilateral kidneys demonstrate pelviectasis, no convincing calyceal dilatation, otherwise normal, right kidney measures 9.0 cm in length, left kidney 10.8 cm in length. The spleen is normal, 9.0 cm in length. No free fluid in the abdomen. Impression: 1. Bilateral renal pelviectasis, no convincing hydronephrosis. 2. Subcentimeter right hepatic cyst. This document has been electronically signed by: Julieth Rocha MD on 04/13/2025 11:22:20
== END 2025-04-13 08:25 | disposition home or self-care (01) ==
LOC: HO.US 08:24
PROVIDERS: PCP Family Medicine; Visit Provider Family Medicine
DX: R10.11 Right upper quadrant pain (principal)
CPT/HCPCS: 76700

== ENCOUNTER → 2025-04-13 08:26 | Outpatient (BNV) | payer OTHER, SELFPAY | PROVIDERS: PCP Family Medicine; Visit Provider Radiology Diagnostic Radiology | DX: K76.89 Other specified diseases of liver (principal) | CPT/HCPCS: 76700 ==

== ENCOUNTER 2025-04-19 10:06 | Outpatient (AMB) | payer OTHER, SELFPAY ==
--- NOTE | 2025-04-19 11:25 | A.OFFPSYCH_ITS ---
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 Allergies No Known Allergies Allergy (Verified 03/18/25 14:29) Medication List - Last Reconciled 04/19/25 by Barbara Amaya APRN albuterol sulfate 90 mcg/actuation 2 puffs inhalation Q4-6H PRN 30 days amoxicillin-pot clavulanate 500-125 mg (Augmentin) 1 tab PO Q12H 10 days atorvastatin (Lipitor) 40 mg PO BEDTIME 90 days bismuth subsalicylate 524 mg (2 x 262 mg) PO QID 14 days cholecalciferol (vitamin D3) 1,250 mcg PO QWEEK 28 days escitalopram oxalate 20 mg PO DAILY 90 days famotidine 20 mg PO BID 30 days fluticasone propionate 110 mcg/actuation (Flovent HFA) 1 puff inhalation Q12H 30 days ibuprofen 600 mg PO Q6H PRN Lactobacillus acidophilus 10,000 mmu cells PO BID lurasidone 40 mg PO DAILY metronidazole 500 mg PO TID omeprazole 20 mg PO BID 14 days tetracycline 500 mg PO QID 14 days HPI- Psychiatric Chief Complaint: follow up HPI Narrative: Pt referred by PCP for depression and anxiety. Pt reports severecontinues with depressed mood, low energy, anhedonia, poor sleep, low appetite, sleep terrors, waking in middle of the night with panic attacks, restless, sad, hears random people talking even when no one around, sees shadows. She reports obsessively cleaning and describes herself as germaphobe. She reports she can't go out in public wihtout someone with her. she washes her hands 10-15 times an hour, she is checking things constantly. she ananlyzes things over and over going over the smallest details and what ifs. Past Psychiatric History: anxiety and depression since age 4. she reports a traumatic upbringing. No IPLOC. Age 9 tried to hang herslef but sister walked in. Past med trials: celexa-stopped working latuda- she thoughts helped Subjective Subjective Medication Compliance: Yes Side effects from medications: No Review of Systems Medical Review of Systems: unchanged Mental Status Exam Mental Status Exam Patient Appearance: Well Grooomed and Appropriate Patient Orientation: Person, Place, Time and Situation Level of Consciousness: Appropriate, Restless and Alert Patient Behavior: Appropriate, Restless and Anxious Mood Description: Constricted, Depressed, Anxious and Nervous Affect Description: Constricted, Depressed, Anxious and Nervous Patient Cognition Impaired: No Ability to Follow Directions: Good Speech Pattern: Clear, Soft-Spoken and Long Pauses Memory Description: Intact Hallucinations: None Delusions: Not Present Perceptual Disturbances: Hallucinations Thought Process: Distracted and Rumination Thought Content: positive for Obsessional Thoughts and positive for Preoccupation Judgement: Fair Assessment and Plan Assessment & Plan (1) OCD (obsessive compulsive disorder): Status: Acute Qualifiers: Obsessive-compulsive disorder type: mixed obsessional thoughts and acts Qualified Code(s): F42.2 - Mixed obsessional thoughts and acts Code(s): F42.9 - Obsessive-compulsive disorder, unspecified (2) Major depressive disorder, recurrent, severe w/o psychotic behavior: Status: Acute Code(s): F33.2 - Major depressive disorder, recurrent severe without psychotic features Plan start latuda 40 mg dailt taje with food continue lexapro sleep medicine referral- long hx sleep terrors, mid wakenings retunrin 4 weeks Counseling and coordination of Care Pt. Self Management counseling: Maintenance-social rhythm, Mod caffeine/ETOH intake, Sleep hygiene, General coping skills and Problem solving Medication management counseling: Effectiveness, Side effects, Dosing range, Duration and Adherence Diagnosis and Prognosis Counseling: Accuracy of diagnosis, Prognosis over time, Impact of diagnosis on life functions, Impact of family relationship, Problematic behaviors secondary to diagnosis and Adequacy of current interventions Details: I spent 70 minutes reviewing the record, seeing the patient and documenting in the medical record. Counseling provided to the patient/caregiver as outlined below. Addressed patient/caregiver concerns regarding current medication regime including effective adherence. Addressed patient/caregiver concerns regarding diagnosis and prognosis including accuracy of diagnosis, prognosis over time, impact of diagnosis. Addressed patient/caregiver concerns regarding impact of recent stressors. [facility] Medical History (Updated 04/19/25 @ 11:31 by Barbara Amaya APRN) Change in consistency of stool Psoriasis Family history of psoriasis in brother Mohs defect Anxiety Depression Surgical History H/O: hysterectomy S/P tonsillectomy Family History Mother Asthma High blood pressure High cholesterol Diabetes Cardiovascular disease Clotting disorder Thyroid disorder Alcoholism Psychiatric disorder Rheumatoid arthritis Osteoarthritis Substance abuse Mental health disorder Father Asthma Alcoholism Lung cancer Maternal Grandmother Asthma Breast cancer Paternal Grandmother Asthma Brother Asthma Substance abuse Mental health disorder Colon polyps Sister Substance abuse Mental health disorder Maternal Aunt Cervical cancer Other Psoriatic arthritis Social History Household Members: Family Household Members Other:: , - 2 older kids Housing: House Are you a primary hospice care sales consultant to a significant other at home: No Do you presently have visiting nurse or other home services: No 75 years or older and lives alone: No Alcohol intake: current Alcohol intake frequency: holidays/special occasions only Patient Tobacco Use Status: Never used Tobacco e-Cigarette/Vaping Use: Never Used Second Hand Smoke Exposure: No Special abdelrahman needs: No service: No Current occupational status: disabled Current occupational exposures/hazards: No Cognitive needs: No Hearing needs: No Vision needs: Yes (wears prescription glasses.) Social History: lives with partner and her 2 adult children. Substance History: none; THC in past. no tobacco, no caffeine, no ETOH, no recreational drugs. Trauma History: yes in school growing up- dropped out got GED Coding Level of Care Code Psych Diag Eval w/Med (32915) Diagnoses Mixed obsessional thoughts and acts F42.2 Obsessive-compulsive disorder type: mixed obsessional thoughts and acts Major depressive disorder, recurrent, severe w/o psychotic behavior F33.2
== END 2025-04-19 10:07 | disposition home or self-care (01) ==
LOC: HO.HOP 10:06
PROVIDERS: PCP Family Medicine; Visit Provider Clinical Nurse Specialist Psychiatric/Mental Health
DX: F42.2 Mixed obsessional thoughts and acts (principal); F33.2 Major depressive disorder, recurrent severe without psychotic features
CPT/HCPCS: 90792

== ENCOUNTER → 2025-04-19 10:06 | Outpatient (BNVA) | payer OTHER, SELFPAY | PROVIDERS: PCP Family Medicine; Visit Provider Clinical Nurse Specialist Psychiatric/Mental Health | DX: F42.2 Mixed obsessional thoughts and acts (principal); F33.2 Major depressive disorder, recurrent severe without psychotic features; Z79.899 Other long term (current) drug therapy | CPT/HCPCS: 90792 ==

== ENCOUNTER → 2025-04-20 08:13 | Outpatient (REF) | payer OTHER, SELFPAY ==
--- NOTE | ~2025-04-20 | NM_ITS ---
EXAMINATION: CO RADIONUCLIDE SOLID FOOD GASTRIC EMPTYING 4-HOUR STUDY CLINICAL INFORMATION: R10.13 - Epigastric pain COMPARISON: There are no prior studies available for comparison. TECHNIQUE: A meal consisting of 4 oz of Egg Beaters brand tagged with 0.76 mCi Tc-99m Sulfur Colloid and 2 oz water was administered orally to the patient. Images were obtained using a dual head gamma camera in the anterior and posterior projections over of the stomach immediately post ingestion and at hourly intervals up to 4 hours post ingestion. The anterior and posterior counts at each time interval were averaged using the geometric mean and expressed as percentage of the immediate post ingestion counts. FINDINGS: There is visualization of activity in the stomach immediately post ingestion. As the study progresses, there is clearance of activity from the stomach and visualization of progressively increasing small bowel activity. Retention in the stomach at each time interval was: 1 hour 57% (normal 37%-90%) 2 hours 20% (normal 30%-60%) 3 hours 2% NM/CO gastric emptying study IMPRESSION: Normal 4-hour solid food gastric emptying study. For solid meal, rapid gastric emptying is less than 30% at 60 minutes. Delayed gastric emptying criteria is more than 60% remaining at 120 minutes or more than 10% at 240 minutes. The 4-hour value is the best discriminator of a normal or abnormal result. Gastric emptying study grading per JNMT Consensus Recommendations in 2008 (https://tech.snmjournals.org/content/36/44) Grade 1 (mild retention): 11-20% at 4h Grade 2 (moderate retention): 21-35% at 4h Grade 3 (severe retention): 36-50% at 4h Grade 4 (very severe retention): >50% retention at 4h Electronically signed by: Frederick Mcnamara MD 04/20/2025 12:15 PM [facility]
== END ==
LOC: HO.NUCMED 08:13
PROVIDERS: PCP Family Medicine; Visit Provider Nurse Practitioner Family
DX: R10.13 Epigastric pain (principal)
CPT/HCPCS: 78264; A9541

== ENCOUNTER → 2025-04-20 08:15 | Outpatient (BNV) | payer OTHER, SELFPAY | PROVIDERS: PCP Family Medicine; Visit Provider Radiology Diagnostic Radiology | DX: R10.13 Epigastric pain (principal) | CPT/HCPCS: 78264 ==